=== PATIENT | male | born 1955 | race African-American/Black ===

== ENCOUNTER 2016-10-11 21:47 | Inpatient (IN) | payer OTHER, MEDICARE, MEDICAID ==
[~2016-10-11] VITALS: Ht 175.3 cm; Wt 92.1 kg
[~2016-10-11 21:47] MED LIST: ASPI-1035 PO; ATOR40TA70 PO; BACL-141 PO; BISO5TAB13 PO; CLOP75TA33 PO; FOLI-43 PO; HYDR-523 PO; LACT10SO6 PO; LEVO75TA7 PO; LORA1TAB PO; NEPVIT PO; NITR0.4T3 SL; POLY17PO3 PO; PROSTAT PO; SENN-22 PO; SEVE800T8 PO; VITAMIN B COMPLEX PO; VITAMIN C PO
[2016-10-11] MEDS ORDERED: PIPERACILLIN/TAZ 3.375G PREMIX 50 ML IV ONE (22:45)
[2016-10-11] MEDS ORDERED: VANCOMYCIN 1 G PREMIX 200 ML IV ONE (22:45)
[2016-10-11] MEDS ORDERED: SODIUM CHLORIDE 0.9% 1,000 ML IV ONE (22:45)
[2016-10-11 23:09] LABS: HEMATOCRIT. 35.7 % (42.0-52.0); HEMOGLOBIN. 11.9 g/dL (14.0-18.0); MEAN CORPUSCULAR HEMOGLOBIN 32.1 pg (28.0-32.0); MEAN CORPUSCULAR HGB CONC 33.3 g/dL (31.0-37.0); MEAN CORPUSCULAR VOLUME 96.4 fL (80.0-94.0); MEAN PLATELET VOLUME 7.6 fl (7.4-10.4); PLATELET 126 x1000/uL (130-400); RED CELL DISTRIBUTION WIDTH 15.9 % (11.6-14.6)
[2016-10-11 23:10] LABS: DIFFERENTIAL COMMENT 1
[2016-10-11 23:11] LABS: WHITE BLOOD COUNT 1.1 x1000/uL (4.5-11.0)
[2016-10-11 23:16] LABS: CHLORIDE 102 mEq/L (98-107); INDEX HEMOLYSI 1 (1-3); INDEX ICTERIC 1 (1-4); INDEX LIPEMIC 1 (1-3)
[2016-10-11 23:17] LABS: PLATELET ESTIMATE DECREASED
[2016-10-11 23:19] LABS: AMMONIA 24 uMol/L (<32); INDEX HEMOLYSI 1 (1-3)
[2016-10-11 23:20] LABS: ANISOCYTOSIS 1+; D-DIMER 3.26 mg/L FEU (<0.50); INR 1.2; PROTHROMBIN TIME 12.5 sec
[2016-10-11 23:26] LABS: ALANINE AMINOTRANSFERASE 31 IU/L (13-61); ALBUMIN 3.1 g/dL (3.4-5.0); ANION GAP 17; CALCIUM 8.5 mg/dL (8.5-10.1); CARBON DIOXIDE 30 mEq/L (21-32); ETHANOL BLOOD < 10 mg/dL; TROPONIN I 0.04 ng/mL (0.00-0.04); UREA NITROGEN BLOOD 29 mg/dL (7-21); eGFR 15 mL/min (>60)
[2016-10-11] MEDS ORDERED: ACETAMINOPHEN 650MG SUPP PR ONE (23:30)
[2016-10-11 23:31] LABS: LACTIC ACID 6.7 mmol/L (0.4-2.0)
[2016-10-11 23:38] LABS: NT PRO B-TYPE NATRIURETIC PEP 40459 pg/mL (5-125)
[2016-10-11 23:43] LABS: BG BASE EXCESS 6.1 mmol/L (-2.0-2.0); BG CARBOXYHEMOGLOBIN 0.6 % (0.5-1.5); BG DEOXYHEMOGLOBIN 24.8 % (0.0-5.0); BG FRACTION INSPIRED OXYGEN 100; BG HCO3 ACT 28.4 mmol/L (22.0-26.0); BG METHEMOGLOBIN 0.3 % (0.0-1.5); BG OXYHEMOGLOBIN 74.3 % (94.0-97.0); BG PH 7.553 (7.350-7.450); BG PO2 38.3 mmHg (75.0-100.0); BG SAMPLE SITE RIGHT RADIAL; BG TOTAL HEMOGLOBIN 11.5 g/dL (12.0-18.0); BG VENT MODE MASK - NRB
[2016-10-12] VITALS (93 sets, daily range): BP systolic 34–123; BP diastolic 17–81
[2016-10-12] MEDS ORDERED: ONDANSETRON HCL 4MG/2ML VIAL IV PRN (00:30)
[2016-10-12] MEDS ORDERED: MAGNESIUM/ALUMINUM HYDROXIDE/SIMETHICONE 30ML UDC PO PRN (00:30)
[2016-10-12] MEDS ORDERED: ACETAMINOPHEN 650MG/20.3ML UDC GT PRN (00:30)
[2016-10-12] MEDS ORDERED: VANCOMYCIN 1 G PREMIX 200 ML IV SCH ×2 (00:30→21:00)
[2016-10-12] MEDS ORDERED: DOCUSATE SODIUM 100MG CAPSULE PO PRN (00:30)
[2016-10-12] MEDS ORDERED: ACETAMINOPHEN 650MG SUPP PR PRN (00:30)
[2016-10-12] MEDS ORDERED: IPRATROPIUM/ALBUTEROL 0.5-3(2.5)MG/3ML NEB INH PRN (00:30)
[2016-10-12] MEDS ORDERED: GUAIFENESIN 200MG/10ML SUGAR FREE UDC PO PRN (00:30)
[2016-10-12] MEDS ORDERED: NA PHOS,M-B/NA PHOS,DI-BA ENEMA 118ML PR PRN (00:30)
[2016-10-12] MEDS ORDERED: CLONIDINE 0.1MG TABLET PO PRN (00:30)
[2016-10-12] MEDS ORDERED: HYDROCODONE/ACETAMINOPHEN 5/325MG TABLET PO PRN (00:30)
[2016-10-12] MEDS ORDERED: DIPHENHYDRAMINE 50MG/ML VIAL IV PRN (00:30)
[2016-10-12] MEDS ORDERED: SODIUM CHLORIDE 0.9% 1,000 ML IV ONE (01:45)
[2016-10-12] MEDS ORDERED: DEXTROSE 50% WATER 50ML SYRINGE IV ONE (02:00)
[2016-10-12] MEDS: SODIUM CHLORIDE 0.9% INJ 3ML FLUSH IVF SCH ×3 (06:24→22:00)
[2016-10-12 06:53] LABS: TROPONIN I 1.6 ng/mL (0.00-0.04)
[2016-10-12] MEDS ORDERED: DEXTROSE 50% WATER 50ML SYRINGE IV PRN (07:15)
[2016-10-12] MEDS ORDERED: PIPERACILLIN/TAZ 2.25G PREMIX 50 ML IV SCH (08:00)
[2016-10-12] MEDS: NOREPINEPHRINE 8 MG in DEXT 5% WATER 242 ML IV PRN ×2 (08:01→19:45)
[2016-10-12 08:45] LABS: BG BASE EXCESS 0.2 mmol/L (-2.0-2.0); BG DEOXYHEMOGLOBIN 2.5 % (0.0-5.0); BG FRACTION INSPIRED OXYGEN 50; BG HCO3 ACT 22.7 mmol/L (22.0-26.0); BG METHEMOGLOBIN 0.1 % (0.0-1.5); BG OXYGEN SATURATION 97.5 % (92.0-98.5); BG OXYHEMOGLOBIN 97.4 % (94.0-97.0); BG PCO2 29.4 mmHg (35.0-45.0); BG PH 7.505 (7.350-7.450); BG PO2 105.5 mmHg (75.0-100.0); BG SAMPLE SITE RIGHT RADIAL; BG TOTAL HEMOGLOBIN 10.4 g/dL (12.0-18.0); BG VENT MODE MASK - SIMPLE
[2016-10-12 08:58] LABS: HEMATOCRIT. 32.4 % (42.0-52.0); HEMOGLOBIN. 10.5 g/dL (14.0-18.0); MEAN CORPUSCULAR HEMOGLOBIN 32.1 pg (28.0-32.0); MEAN CORPUSCULAR HGB CONC 32.6 g/dL (31.0-37.0); MEAN CORPUSCULAR VOLUME 98.4 fL (80.0-94.0); MEAN PLATELET VOLUME 8.8 fl (7.4-10.4); PLATELET 96 x1000/uL (130-400); RED BLOOD CELL COUNT 3.29 mill/uL (4.7-6.1); RED CELL DISTRIBUTION WIDTH 15.9 % (11.6-14.6); WHITE BLOOD COUNT 16.7 x1000/uL (4.5-11.0)
[2016-10-12 08:59] LABS: DIFFERENTIAL COMMENT 1
[2016-10-12] MEDS ORDERED: MORPHINE SULFATE 2 MG/ML CPJ (NOT FOR IM USE) IV PRN (09:00)
[2016-10-12] MEDS ORDERED: ENOXAPARIN 100MG/ML SYR SUBCUT SCH (09:00)
[2016-10-12 09:09] LABS: ALANINE AMINOTRANSFERASE 44 IU/L (13-61); ANION GAP 20; CALCIUM 8.6 mg/dL (8.5-10.1); CARBON DIOXIDE 24 mEq/L (21-32); CHLORIDE 104 mEq/L (98-107); INDEX HEMOLYSI 3 (1-3); INDEX ICTERIC 1 (1-4); INDEX LIPEMIC 1 (1-3); UREA NITROGEN BLOOD 35 mg/dL (7-21); eGFR 12 mL/min (>60)
[2016-10-12 09:21] LABS: PHOSPHORUS 2.5 mg/dL (2.5-4.9); T4 FREE 1.23 ng/dL (0.76-1.46)
[2016-10-12 10:05] LABS: ANISOCYTOSIS 1+; PLATELET ESTIMATE DECREASED
[2016-10-12] MEDS ORDERED: METRONIDAZOLE 500 MG PREMIX 100 ML IV SCH (10:30)
[2016-10-12] MEDS ORDERED: CEFEPIME 1,000 MG in DEXTROSE 5% WATER 50 ML IV SCH (11:00)
[2016-10-12] MEDS: BLOOD SUGAR DIAGNOSTIC STRIP TEST SCH ×3 (11:21→21:30)
[2016-10-12] MEDS: INSULIN LISPRO 100 UNITS/ML SUBCUT SCH ×3 (11:22→21:00)
[2016-10-12] MEDS ORDERED: LEVOFLOXACIN 500MG PREMIX 100 ML IV SCH (12:00)
[2016-10-12] MEDS: IPRATROPIUM/ALBUTEROL 0.5-3(2.5)MG/3ML NEB INH SCH ×2 (13:47→21:03)
[2016-10-12 15:51] LABS: TROPONIN I 4.1 ng/mL (0.00-0.04)
[2016-10-12] MEDS ORDERED: *TOBRAMYCIN PER PHARMACY XX SCH (16:00)
[2016-10-12] MEDS ORDERED: TOBRAMYCIN 80 MG PREMIX 100 ML IV ONE (16:00)
[2016-10-12] MEDS ORDERED: TOBRAMYCIN SULFATE 140 MG in SODIUM CHLORIDE 0.9% 100 ML IV NR (17:00)
[2016-10-12 19:06] LABS: BG BASE EXCESS -1.5 mmol/L (-2.0-2.0); BG CARBOXYHEMOGLOBIN 0.6 % (0.5-1.5); BG DEOXYHEMOGLOBIN 4.7 % (0.0-5.0); BG FRACTION INSPIRED OXYGEN 36; BG HCO3 ACT 21.1 mmol/L (22.0-26.0); BG METHEMOGLOBIN 0.1 % (0.0-1.5); BG OXYGEN SATURATION 95.3 % (92.0-98.5); BG OXYHEMOGLOBIN 94.6 % (94.0-97.0); BG PCO2 29.5 mmHg (35.0-45.0); BG PH 7.473 (7.350-7.450); BG PO2 77.7 mmHg (75.0-100.0); BG SAMPLE SITE RIGHT RADIAL; BG TOTAL HEMOGLOBIN 12.5 g/dL (12.0-18.0); BG VENT MODE NASAL CPAP
[2016-10-12] MEDS: MORPHINE SULFATE 2 MG/ML CPJ (NOT FOR IM USE) IV PRN (19:53)
[2016-10-12 23:02] LABS: BG BASE EXCESS -3.7 mmol/L (-2.0-2.0); BG CARBOXYHEMOGLOBIN 0.4 % (0.5-1.5); BG DEOXYHEMOGLOBIN 3.5 % (0.0-5.0); BG FRACTION INSPIRED OXYGEN 36; BG HCO3 ACT 20.6 mmol/L (22.0-26.0); BG METHEMOGLOBIN 0.1 % (0.0-1.5); BG OXYGEN SATURATION 96.5 % (92.0-98.5); BG PCO2 34.9 mmHg (35.0-45.0); BG PH 7.389 (7.350-7.450); BG SAMPLE SITE RIGHT BRACHIAL; BG TOTAL HEMOGLOBIN 12.3 g/dL (12.0-18.0); BG VENT MODE NASAL CANNULA
[2016-10-12] MEDS ORDERED: LORAZEPAM 2MG/ML CPJ IV PRN (23:45)
[2016-10-13] VITALS (85 sets, daily range): BP systolic 56–163; BP diastolic 26–90
[2016-10-13] MEDS: MORPHINE SULFATE 2 MG/ML CPJ (NOT FOR IM USE) IV PRN (00:21)
[2016-10-13] MEDS: NOREPINEPHRINE 8 MG in DEXT 5% WATER 242 ML IV PRN ×5 (01:12→22:03)
[2016-10-13] MEDS: IPRATROPIUM/ALBUTEROL 0.5-3(2.5)MG/3ML NEB INH SCH ×4 (02:13→20:56)
[2016-10-13 02:26] LABS: CREATINE KINASE MB FRACTION 6.7 ng/mL (0.5-3.6)
[2016-10-13 02:27] LABS: TROPONIN I 3.7 ng/mL (0.00-0.04)
[2016-10-13] MEDS: PHENYLEPHRINE 40 MG in DEXT 5% WATER 246 ML IV PRN ×3 (03:44→17:12)
[2016-10-13 05:51] LABS: HEMOGLOBIN. 12.1 g/dL (14.0-18.0); MEAN CORPUSCULAR HEMOGLOBIN 31.7 pg (28.0-32.0); MEAN CORPUSCULAR HGB CONC 31.7 g/dL (31.0-37.0); MEAN CORPUSCULAR VOLUME 99.9 fL (80.0-94.0); MEAN PLATELET VOLUME 9.6 fl (7.4-10.4); PLATELET 146 x1000/uL (130-400); RED CELL DISTRIBUTION WIDTH 16.7 % (11.6-14.6); WHITE BLOOD COUNT 33.2 x1000/uL (4.5-11.0)
[2016-10-13] MEDS: SODIUM CHLORIDE 0.9% INJ 3ML FLUSH IVF SCH (06:00)
[2016-10-13 06:13] LABS: DIFFERENTIAL COMMENT 1
[2016-10-13] MEDS: INSULIN LISPRO 100 UNITS/ML SUBCUT SCH ×4 (06:35→20:35)
[2016-10-13] MEDS: BLOOD SUGAR DIAGNOSTIC STRIP TEST SCH ×4 (06:35→20:34)
[2016-10-13 06:55] LABS: ALANINE AMINOTRANSFERASE 46 IU/L (13-61); ANION GAP 23; CALCIUM 8.7 mg/dL (8.5-10.1); CARBON DIOXIDE 17 mEq/L (21-32); CHLORIDE 102 mEq/L (98-107); CREATINE KINASE MB FRACTION 7.7 ng/mL (0.5-3.6); HDL CHOLESTEROL 15 mg/dL (40-59); INDEX HEMOLYSI 4 (1-3); INDEX ICTERIC 2 (1-4); INDEX LIPEMIC 1 (1-3); LDL CHOLESTEROL 40 mg/dL (5-100); TOBRAMYCIN RANDOM 2.7 ucg/mL; TRIGLYCERIDE 181 mg/dL (0-150); UREA NITROGEN BLOOD 36 mg/dL (7-21); eGFR 12 mL/min (>60)
[2016-10-13 07:00] LABS: T3 FREE 0.99 pg/ml (2.18-3.98)
[2016-10-13 07:31] LABS: ANISOCYTOSIS 1+; PLATELET ESTIMATE NORMAL; TOXIC VACUOLATION 1+
[2016-10-13 07:32] LABS: PREALBUMIN 19.6 mg/dL (20.0-40.0)
[2016-10-13] MEDS: RISPERIDONE 0.5MG TABLET PO SCH ×3 (09:00→17:00)
[2016-10-13] MEDS ORDERED: AMPICILLIN SOD/SULBACTAM NA 1.5 G in SODIUM CHLORIDE 0.9% 50 ML IV SCH (09:00)
[2016-10-13] MEDS ORDERED: ENOXAPARIN 30MG/0.3ML SYR SUBCUT SCH (09:00)
[2016-10-13] MEDS: CLOPIDOGREL 75MG TABLET PO SCH (09:00)
[2016-10-13 09:44] LABS: D-DIMER 2.29 mg/L FEU (<0.50); INR 1.9; PROTHROMBIN TIME 19.4 sec
[2016-10-13] MEDS: ASPIRIN 81MG TABLET PO SCH (10:37)
[2016-10-13] MEDS ORDERED: TOBRAMYCIN 80 MG PREMIX 100 ML IV NR (12:00)
[2016-10-13] MEDS ORDERED: TOBRAMYCIN SULFATE 80 MG in SODIUM CHLORIDE 0.9% 100 ML IV NR (12:00)
[2016-10-13] MEDS ORDERED: ETOMIDATE 2MG/ML 10ML VIAL IV ONE (12:57)
[2016-10-13] MEDS ORDERED: VECURONIUM BROMIDE 10 MG/VIAL IV ONE (12:57)
[2016-10-13 13:44] LABS: BG BASE EXCESS -4.3 mmol/L (-2.0-2.0); BG CARBOXYHEMOGLOBIN 0.1 % (0.5-1.5); BG DEOXYHEMOGLOBIN 0.5 % (0.0-5.0); BG FRACTION INSPIRED OXYGEN 100; BG HCO3 ACT 19.7 mmol/L (22.0-26.0); BG METHEMOGLOBIN 0.4 % (0.0-1.5); BG OXYGEN SATURATION 99.5 % (92.0-98.5); BG PCO2 32.7 mmHg (35.0-45.0); BG PH 7.397 (7.350-7.450); BG PO2 340.5 mmHg (75.0-100.0); BG SAMPLE SITE RIGHT BRACHIAL; BG TIDAL VOLUME(mL) 550 mL; BG TOTAL HEMOGLOBIN 12.4 g/dL (12.0-18.0); BG VENT MODE VENT - A/C; BG VENT RATE 12 set
[2016-10-13] MEDS ORDERED: COLISTIMETHATE XX SCH (14:45)
[2016-10-13] MEDS ORDERED: VANCOMYCIN 500 MG PREMIX 100 ML IV NR (15:30)
[2016-10-13] MEDS ORDERED: VANCOMYCIN 1 G PREMIX 200 ML IV NR (16:00)
[2016-10-13] MEDS ORDERED: COLISTIMETHATE SODIUM 150 MG in SODIUM CHLORIDE 0.9% 100 ML IV NR (16:30)
[2016-10-13] MEDS ORDERED: COLISTIMETHATE SODIUM 300 MG in SODIUM CHLORIDE 0.9% 100 ML IV NR (16:30)
[2016-10-13] MEDS: MEROPENEM 1,000 MG in SODIUM CHLORIDE 0.9% 100 ML IV SCH (17:02)
[2016-10-13] MEDS ORDERED: SODIUM BICARBONATE 8.4% 1 MEQ/ML 50ML SYR IV NR (17:30)
[2016-10-13] MEDS: PROPOFOL 10MG/ML 100ML 100 ML IV PRN (20:10)
[2016-10-14] VITALS (88 sets, daily range): BP systolic 87–143; BP diastolic 20–97
[2016-10-14] MEDS: PHENYLEPHRINE 40 MG in DEXT 5% WATER 246 ML IV PRN ×3 (01:41→14:21)
[2016-10-14] MEDS: IPRATROPIUM/ALBUTEROL 0.5-3(2.5)MG/3ML NEB INH SCH ×3 (02:36→20:14)
[2016-10-14] MEDS: NOREPINEPHRINE 32 MG in DEXT 5% WATER 500 ML IV PRN ×2 (03:04→21:00)
[2016-10-14 05:41] LABS: HEMATOCRIT 31.8 % (42.0-52.0); HEMOGLOBIN 10.3 g/dL (14.0-18.0); MEAN CORPUSCULAR HEMOGLOBIN 31.5 pg (28.0-32.0); MEAN CORPUSCULAR HGB CONC 32.3 g/dL (31.0-37.0); MEAN CORPUSCULAR VOLUME 97.5 fL (80.0-94.0); PLATELET 127 x1000/uL (130-400); RED BLOOD CELL COUNT 3.27 mill/uL (4.7-6.1); RED CELL DISTRIBUTION WIDTH 16.8 % (11.6-14.6); WHITE BLOOD COUNT 30.5 x1000/uL (4.5-11.0)
[2016-10-14 06:07] LABS: CALCIUM 8.7 mg/dL (8.5-10.1)
[2016-10-14] MEDS: INSULIN LISPRO 100 UNITS/ML SUBCUT SCH ×4 (07:00→21:00)
[2016-10-14] MEDS: BLOOD SUGAR DIAGNOSTIC STRIP TEST SCH ×4 (07:20→21:45)
[2016-10-14 08:02] LABS: BG CARBOXYHEMOGLOBIN 0.3 % (0.5-1.5); BG DEOXYHEMOGLOBIN 1.8 % (0.0-5.0); BG FRACTION INSPIRED OXYGEN 50; BG HCO3 ACT 21.8 mmol/L (22.0-26.0); BG METHEMOGLOBIN 1.1 % (0.0-1.5); BG OXYGEN SATURATION 98.2 % (92.0-98.5); BG OXYHEMOGLOBIN 96.8 % (94.0-97.0); BG PCO2 34.1 mmHg (35.0-45.0); BG PH 7.424 (7.350-7.450); BG PO2 143.9 mmHg (75.0-100.0); BG SAMPLE SITE RIGHT RADIAL; BG TIDAL VOLUME(mL) 550 mL; BG VENT MODE VENT - A/C; BG VENT RATE 12 set
[2016-10-14] MEDS: RISPERIDONE 0.5MG TABLET PO SCH (08:36)
[2016-10-14] MEDS: ASPIRIN 81MG TABLET PO SCH (08:36)
[2016-10-14] MEDS: CLOPIDOGREL 75MG TABLET PO SCH ×2 (08:36→09:00)
[2016-10-14] MEDS: PROPOFOL 10MG/ML 100ML 100 ML IV PRN (08:37)
[2016-10-14] MEDS: SODIUM CHLORIDE 0.9% INJ 3ML FLUSH IVF SCH ×5 (08:45→22:44)
[2016-10-14] MEDS: QUETIAPINE FUMARATE 25MG TABLET PO SCH ×2 (09:10→21:45)
[2016-10-14] MEDS: PANTOPRAZOLE SODIUM 40 MG/VIAL IV SCH (09:10)
[2016-10-14] MEDS ORDERED: HEPARIN SODIUM 1,000 UNIT/1ML VIAL IV NR (10:15)
[2016-10-14] MEDS ORDERED: LEVOFLOXACIN 250MG PREMIX 50 ML IV SCH (11:00)
[2016-10-14] MEDS ORDERED: MIDAZOLAM HCL 100 MG in DEXT 5% WATER 80 ML IV PRN (11:30)
[2016-10-14] MEDS ORDERED: VANCOMYCIN 500 MG PREMIX 100 ML IV NR (15:00)
[2016-10-14] MEDS: MEROPENEM 1,000 MG in SODIUM CHLORIDE 0.9% 100 ML IV SCH (16:18)
[2016-10-14] MEDS: FENTANYL CITRATE/PF 500 MCG in SODIUM CHLORIDE 0.9% 40 ML IV PRN (22:18)
[2016-10-15] VITALS (86 sets, daily range): BP systolic 60–164; BP diastolic 28–89
[2016-10-15] MEDS: IPRATROPIUM/ALBUTEROL 0.5-3(2.5)MG/3ML NEB INH SCH ×4 (02:07→20:19)
[2016-10-15] MEDS: PHENYLEPHRINE 40 MG in DEXT 5% WATER 246 ML IV PRN (02:41)
[2016-10-15] MEDS: SODIUM CHLORIDE 0.9% INJ 3ML FLUSH IVF SCH ×3 (06:05→22:28)
[2016-10-15] MEDS: BLOOD SUGAR DIAGNOSTIC STRIP TEST SCH ×4 (06:05→20:52)
[2016-10-15] MEDS: INSULIN LISPRO 100 UNITS/ML SUBCUT SCH ×4 (06:09→20:52)
[2016-10-15 07:32] LABS: BG BASE EXCESS -0.3 mmol/L (-2.0-2.0); BG CARBOXYHEMOGLOBIN 0.3 % (0.5-1.5); BG DEOXYHEMOGLOBIN 1.9 % (0.0-5.0); BG FRACTION INSPIRED OXYGEN 40; BG HCO3 ACT 21.9 mmol/L (22.0-26.0); BG METHEMOGLOBIN 0.1 % (0.0-1.5); BG OXYGEN SATURATION 98.1 % (92.0-98.5); BG OXYHEMOGLOBIN 97.7 % (94.0-97.0); BG PCO2 28.2 mmHg (35.0-45.0); BG PH 7.509 (7.350-7.450); BG PO2 116.3 mmHg (75.0-100.0); BG SAMPLE SITE RIGHT RADIAL; BG TIDAL VOLUME(mL) 550 mL; BG TOTAL HEMOGLOBIN 10.9 g/dL (12.0-18.0); BG VENT MODE VENT - A/C; BG VENT RATE 12 set
[2016-10-15] MEDS: CLOPIDOGREL 75MG TABLET PO SCH (08:38)
[2016-10-15] MEDS: ASPIRIN 81MG TABLET PO SCH (08:38)
[2016-10-15] MEDS: PANTOPRAZOLE SODIUM 40 MG/VIAL IV SCH (08:38)
[2016-10-15] MEDS: QUETIAPINE FUMARATE 25MG TABLET PO SCH ×2 (08:39→20:20)
[2016-10-15] MEDS: FENTANYL CITRATE/PF 500 MCG in SODIUM CHLORIDE 0.9% 40 ML IV PRN (09:54)
[2016-10-15 10:27] LABS: ALANINE AMINOTRANSFERASE 52 IU/L (13-61); ALBUMIN 2.3 g/dL (3.4-5.0); ANION GAP 18; CALCIUM 9.4 mg/dL (8.5-10.1); CARBON DIOXIDE 24 mEq/L (21-32); CHLORIDE 95 mEq/L (98-107); INDEX HEMOLYSI 1 (1-3); INDEX ICTERIC 1 (1-4); INDEX LIPEMIC 1 (1-3); UREA NITROGEN BLOOD 38 mg/dL (7-21); eGFR 12 mL/min (>60)
[2016-10-15] MEDS: MEROPENEM 1,000 MG in SODIUM CHLORIDE 0.9% 100 ML IV SCH (15:29)
[2016-10-15 18:00] LABS: BASOPHILS % 0.4 % (0.0-2.0); EOSINOPHILS % 5.4 % (0.0-5.0); HEMATOCRIT. 31.3 % (42.0-52.0); HEMOGLOBIN. 10.3 g/dL (14.0-18.0); LYMPHOCYTES % 11.2 % (20.0-50.0); MEAN CORPUSCULAR HEMOGLOBIN 31.6 pg (28.0-32.0); MEAN CORPUSCULAR VOLUME 95.8 fL (80.0-94.0); MEAN PLATELET VOLUME 8.6 fl (7.4-10.4); MONOCYTES % 4.7 % (2.0-8.0); NEUTROPHILS % 78.3 % (40.0-76.0); PLATELET 119 x1000/uL (130-400); RED BLOOD CELL COUNT 3.26 mill/uL (4.7-6.1); RED CELL DISTRIBUTION WIDTH 16.2 % (11.6-14.6); WHITE BLOOD COUNT 15.9 x1000/uL (4.5-11.0)
[2016-10-15 18:05] LABS: CHLORIDE 95 mEq/L (98-107); INDEX HEMOLYSI 1 (1-3); INDEX ICTERIC 1 (1-4); INDEX LIPEMIC 1 (1-3)
[2016-10-15 18:14] LABS: ALANINE AMINOTRANSFERASE 51 IU/L (13-61); ALBUMIN 2.3 g/dL (3.4-5.0); ANION GAP 18; CALCIUM 9.2 mg/dL (8.5-10.1); CARBON DIOXIDE 22 mEq/L (21-32); UREA NITROGEN BLOOD 43 mg/dL (7-21); eGFR 11 mL/min (>60)
[2016-10-15] MEDS: NOREPINEPHRINE 32 MG in DEXT 5% WATER 500 ML IV PRN (18:46)
[2016-10-15] MEDS ORDERED: FLUCONAZOLE 200 MG/100ML BAG 100 ML IV SCH (22:00)
[2016-10-16] VITALS (90 sets, daily range): BP systolic 80–152; BP diastolic 46–100
[2016-10-16] MEDS: IPRATROPIUM/ALBUTEROL 0.5-3(2.5)MG/3ML NEB INH SCH ×4 (02:13→20:51)
[2016-10-16] MEDS: PHENYLEPHRINE 40 MG in DEXT 5% WATER 246 ML IV PRN ×2 (02:36→14:23)
[2016-10-16 04:26] LABS: HEMATOCRIT. 32.2 % (42.0-52.0); HEMOGLOBIN. 10.5 g/dL (14.0-18.0); MEAN CORPUSCULAR HEMOGLOBIN 31.5 pg (28.0-32.0); MEAN CORPUSCULAR HGB CONC 32.5 g/dL (31.0-37.0); MEAN CORPUSCULAR VOLUME 96.7 fL (80.0-94.0); MEAN PLATELET VOLUME 8.6 fl (7.4-10.4); PLATELET 111 x1000/uL (130-400); RED BLOOD CELL COUNT 3.33 mill/uL (4.7-6.1); RED CELL DISTRIBUTION WIDTH 15.6 % (11.6-14.6); WHITE BLOOD COUNT 15.4 x1000/uL (4.5-11.0)
[2016-10-16 04:48] LABS: ALANINE AMINOTRANSFERASE 55 IU/L (13-61); ALBUMIN 2.4 g/dL (3.4-5.0); ANION GAP 16; CALCIUM 9.4 mg/dL (8.5-10.1); CARBON DIOXIDE 24 mEq/L (21-32); CHLORIDE 94 mEq/L (98-107); INDEX HEMOLYSI 1 (1-3); INDEX ICTERIC 1 (1-4); INDEX LIPEMIC 1 (1-3); UREA NITROGEN BLOOD 49 mg/dL (7-21); eGFR 10 mL/min (>60)
[2016-10-16 05:08] LABS: DIFFERENTIAL COMMENT 1
[2016-10-16] MEDS: BLOOD SUGAR DIAGNOSTIC STRIP TEST SCH ×4 (05:30→21:51)
[2016-10-16] MEDS: INSULIN LISPRO 100 UNITS/ML SUBCUT SCH ×4 (05:32→21:00)
[2016-10-16] MEDS: SODIUM CHLORIDE 0.9% INJ 3ML FLUSH IVF SCH ×3 (05:33→22:12)
[2016-10-16 08:13] LABS: ATYPICAL LYMPHOCYTES 1
[2016-10-16 08:14] LABS: PLATELET ESTIMATE DECREASED
[2016-10-16] MEDS: PANTOPRAZOLE SODIUM 40 MG/VIAL IV SCH (08:36)
[2016-10-16] MEDS: ASPIRIN 81MG TABLET PO SCH (08:36)
[2016-10-16] MEDS: CLOPIDOGREL 75MG TABLET PO SCH (08:36)
[2016-10-16] MEDS: QUETIAPINE FUMARATE 25MG TABLET PO SCH ×2 (08:37→21:56)
[2016-10-16] MEDS ORDERED: FLUCONAZOLE 200MG/100ML PREMIX IV SCH (09:00)
[2016-10-16 09:37] LABS: BG BASE EXCESS -1.6 mmol/L (-2.0-2.0); BG CARBOXYHEMOGLOBIN 0.3 % (0.5-1.5); BG DEOXYHEMOGLOBIN 3.3 % (0.0-5.0); BG FRACTION INSPIRED OXYGEN 40; BG HCO3 ACT 21.5 mmol/L (22.0-26.0); BG METHEMOGLOBIN 0.4 % (0.0-1.5); BG OXYGEN SATURATION 96.7 % (92.0-98.5); BG PCO2 31.4 mmHg (35.0-45.0); BG PH 7.454 (7.350-7.450); BG PO2 95.1 mmHg (75.0-100.0); BG SAMPLE SITE RIGHT BRACHIAL; BG TIDAL VOLUME(mL) 550 mL; BG TOTAL HEMOGLOBIN 11.5 g/dL (12.0-18.0); BG VENT MODE VENT - A/C; BG VENT RATE 12 set
[2016-10-16] MEDS ORDERED: SODIUM CHLORIDE 10% FOR INH 15ML VIAL NEB INH SCH (10:45)
[2016-10-16] MEDS: NOREPINEPHRINE 32 MG in DEXT 5% WATER 500 ML IV PRN (12:04)
[2016-10-16] MEDS ORDERED: HEPARIN SODIUM 1,000 UNIT/1ML VIAL IV NR (12:15)
[2016-10-16] MEDS: METOCLOPRAMIDE HCL 10MG/2ML VIAL IV SCH ×2 (14:23→22:12)
[2016-10-16] MEDS: MEROPENEM 1,000 MG in SODIUM CHLORIDE 0.9% 100 ML IV SCH (15:55)
[2016-10-16] MEDS ORDERED: VANCOMYCIN 1 G PREMIX 200 ML IV NR (18:00)
[2016-10-17] VITALS (81 sets, daily range): BP systolic 66–128; BP diastolic 47–81
[2016-10-17] MEDS: IPRATROPIUM/ALBUTEROL 0.5-3(2.5)MG/3ML NEB INH SCH ×4 (02:40→21:50)
[2016-10-17 05:24] LABS: BASOPHILS % 0.5 % (0.0-2.0); EOSINOPHILS % 9.3 % (0.0-5.0); HEMATOCRIT. 30.7 % (42.0-52.0); HEMOGLOBIN. 10.3 g/dL (14.0-18.0); LYMPHOCYTES % 27.8 % (20.0-50.0); MEAN CORPUSCULAR HGB CONC 33.7 g/dL (31.0-37.0); MEAN CORPUSCULAR VOLUME 95.1 fL (80.0-94.0); MEAN PLATELET VOLUME 9.2 fl (7.4-10.4); MONOCYTES % 8.8 % (2.0-8.0); NEUTROPHILS % 53.6 % (40.0-76.0); PLATELET 92 x1000/uL (130-400); RED BLOOD CELL COUNT 3.23 mill/uL (4.7-6.1); RED CELL DISTRIBUTION WIDTH 15.4 % (11.6-14.6); WHITE BLOOD COUNT 6.7 x1000/uL (4.5-11.0)
[2016-10-17 05:41] LABS: PHOSPHORUS 4.1 mg/dL (2.5-4.9); PREALBUMIN 14.7 mg/dL (20.0-40.0); eGFR 12 mL/min (>60)
[2016-10-17 05:49] LABS: ALANINE AMINOTRANSFERASE 54 IU/L (13-61); ALBUMIN 2.2 g/dL (3.4-5.0); ANION GAP 18; CALCIUM 8.7 mg/dL (8.5-10.1); CARBON DIOXIDE 22 mEq/L (21-32); CHLORIDE 96 mEq/L (98-107); INDEX HEMOLYSI 1 (1-3); INDEX ICTERIC 1 (1-4); INDEX LIPEMIC 1 (1-3); UREA NITROGEN BLOOD 41 mg/dL (7-21)
[2016-10-17] MEDS: SODIUM CHLORIDE 0.9% INJ 3ML FLUSH IVF SCH ×3 (06:09→22:24)
[2016-10-17] MEDS: METOCLOPRAMIDE HCL 10MG/2ML VIAL IV SCH ×3 (06:10→22:24)
[2016-10-17] MEDS: BLOOD SUGAR DIAGNOSTIC STRIP TEST SCH ×4 (06:10→21:00)
[2016-10-17] MEDS: INSULIN LISPRO 100 UNITS/ML SUBCUT SCH ×4 (06:26→21:00)
[2016-10-17] MEDS: ASPIRIN 81MG TABLET PO SCH (09:01)
[2016-10-17] MEDS: PANTOPRAZOLE SODIUM 40 MG/VIAL IV SCH (09:01)
[2016-10-17] MEDS: QUETIAPINE FUMARATE 25MG TABLET PO SCH ×2 (09:01→20:43)
[2016-10-17] MEDS: CLOPIDOGREL 75MG TABLET PO SCH (09:01)
[2016-10-17] MEDS: MEROPENEM 1,000 MG in SODIUM CHLORIDE 0.9% 100 ML IV SCH (17:16)
[2016-10-17] MEDS: MORPHINE SULFATE 2 MG/ML CPJ (NOT FOR IM USE) IV PRN (19:40)
[2016-10-17] MEDS: NOREPINEPHRINE 32 MG in DEXT 5% WATER 500 ML IV PRN (19:55)
[2016-10-18] VITALS (72 sets, daily range): BP systolic 88–141; BP diastolic 39–107
[2016-10-18] MEDS: MORPHINE SULFATE 2 MG/ML CPJ (NOT FOR IM USE) IV PRN ×5 (01:47→23:52)
[2016-10-18] MEDS: IPRATROPIUM/ALBUTEROL 0.5-3(2.5)MG/3ML NEB INH SCH ×5 (04:17→20:30)
[2016-10-18 05:23] LABS: BASOPHILS % 0.9 % (0.0-2.0); EOSINOPHILS % 10.3 % (0.0-5.0); HEMATOCRIT. 29.9 % (42.0-52.0); LYMPHOCYTES % 33.2 % (20.0-50.0); MEAN CORPUSCULAR HEMOGLOBIN 31.8 pg (28.0-32.0); MEAN CORPUSCULAR HGB CONC 33.4 g/dL (31.0-37.0); MEAN CORPUSCULAR VOLUME 95.2 fL (80.0-94.0); MEAN PLATELET VOLUME 9.1 fl (7.4-10.4); MONOCYTES % 11.1 % (2.0-8.0); NEUTROPHILS % 44.5 % (40.0-76.0); PLATELET 107 x1000/uL (130-400); RED BLOOD CELL COUNT 3.14 mill/uL (4.7-6.1); RED CELL DISTRIBUTION WIDTH 15.5 % (11.6-14.6); WHITE BLOOD COUNT 5.3 x1000/uL (4.5-11.0)
[2016-10-18 06:01] LABS: ALANINE AMINOTRANSFERASE 43 IU/L (13-61); ALBUMIN 2.4 g/dL (3.4-5.0); ANION GAP 19; CALCIUM 9.1 mg/dL (8.5-10.1); CARBON DIOXIDE 21 mEq/L (21-32); CHLORIDE 96 mEq/L (98-107); INDEX HEMOLYSI 2 (1-3); INDEX ICTERIC 1 (1-4); INDEX LIPEMIC 1 (1-3); UREA NITROGEN BLOOD 55 mg/dL (7-21); eGFR 9 mL/min (>60)
[2016-10-18] MEDS: METOCLOPRAMIDE HCL 10MG/2ML VIAL IV SCH ×3 (06:18→21:29)
[2016-10-18] MEDS: INSULIN LISPRO 100 UNITS/ML SUBCUT SCH ×4 (06:19→21:00)
[2016-10-18] MEDS: BLOOD SUGAR DIAGNOSTIC STRIP TEST SCH ×4 (06:19→21:28)
[2016-10-18] MEDS: SODIUM CHLORIDE 0.9% INJ 3ML FLUSH IVF SCH ×3 (06:19→21:29)
[2016-10-18] MEDS: QUETIAPINE FUMARATE 25MG TABLET PO SCH ×2 (08:02→21:28)
[2016-10-18] MEDS: ASPIRIN 81MG TABLET PO SCH (08:02)
[2016-10-18] MEDS: CLOPIDOGREL 75MG TABLET PO SCH (08:02)
[2016-10-18] MEDS: PANTOPRAZOLE SODIUM 40 MG/VIAL IV SCH (08:02)
[2016-10-18] MEDS ORDERED: HEPARIN SODIUM 1,000 UNIT/1ML VIAL IV NR (09:45)
[2016-10-18] MEDS: MEROPENEM 1,000 MG in SODIUM CHLORIDE 0.9% 100 ML IV SCH (16:26)
[2016-10-18] MEDS ORDERED: VANCOMYCIN 750 MG PREMIX 150 ML IV SCH (17:00)
[2016-10-19] VITALS (93 sets, daily range): BP systolic 87–133; BP diastolic 23–86
[2016-10-19] MEDS: IPRATROPIUM/ALBUTEROL 0.5-3(2.5)MG/3ML NEB INH SCH ×4 (02:15→20:33)
[2016-10-19] MEDS: MORPHINE SULFATE 2 MG/ML CPJ (NOT FOR IM USE) IV PRN ×3 (04:55→20:59)
[2016-10-19 05:18] LABS: BASOPHILS % 0.7 % (0.0-2.0); EOSINOPHILS % 10.3 % (0.0-5.0); HEMATOCRIT. 29.6 % (42.0-52.0); HEMOGLOBIN. 10.1 g/dL (14.0-18.0); LYMPHOCYTES % 27.8 % (20.0-50.0); MEAN CORPUSCULAR HEMOGLOBIN 32.2 pg (28.0-32.0); MEAN CORPUSCULAR HGB CONC 34.1 g/dL (31.0-37.0); MEAN CORPUSCULAR VOLUME 94.4 fL (80.0-94.0); MEAN PLATELET VOLUME 8.3 fl (7.4-10.4); MONOCYTES % 12.9 % (2.0-8.0); NEUTROPHILS % 48.3 % (40.0-76.0); PLATELET 114 x1000/uL (130-400); RED BLOOD CELL COUNT 3.14 mill/uL (4.7-6.1); RED CELL DISTRIBUTION WIDTH 15.1 % (11.6-14.6); WHITE BLOOD COUNT 5.5 x1000/uL (4.5-11.0)
[2016-10-19 05:35] LABS: PARTIAL THROMBOPLASTIN TIME 34.4 sec (24.0-34.0)
[2016-10-19 05:44] LABS: CALCIUM 8.6 mg/dL (8.5-10.1)
[2016-10-19] MEDS: METOCLOPRAMIDE HCL 10MG/2ML VIAL IV SCH ×3 (05:44→20:58)
[2016-10-19] MEDS: NOREPINEPHRINE 32 MG in DEXT 5% WATER 500 ML IV PRN (05:45)
[2016-10-19] MEDS: INSULIN LISPRO 100 UNITS/ML SUBCUT SCH ×4 (06:57→20:44)
[2016-10-19] MEDS: SODIUM CHLORIDE 0.9% INJ 3ML FLUSH IVF SCH ×3 (06:57→22:00)
[2016-10-19] MEDS: BLOOD SUGAR DIAGNOSTIC STRIP TEST SCH ×4 (06:57→20:44)
[2016-10-19] MEDS: ASPIRIN 81MG TABLET PO SCH (09:11)
[2016-10-19] MEDS: QUETIAPINE FUMARATE 25MG TABLET PO SCH ×2 (09:11→21:07)
[2016-10-19] MEDS: CLOPIDOGREL 75MG TABLET PO SCH (09:11)
[2016-10-19] MEDS: PANTOPRAZOLE SODIUM 40 MG/VIAL IV SCH (09:11)
[2016-10-19] MEDS ORDERED: ALBUMIN HUMAN 12.5G/250ML (5%) IV SCH (13:00)
[2016-10-19] MEDS: MEROPENEM 1,000 MG in SODIUM CHLORIDE 0.9% 100 ML IV SCH (16:30)
[2016-10-19 18:59] LABS: BG BASE EXCESS -3.2 mmol/L (-2.0-2.0); BG CARBOXYHEMOGLOBIN 0.3 % (0.5-1.5); BG DEOXYHEMOGLOBIN 3.3 % (0.0-5.0); BG FRACTION INSPIRED OXYGEN 40; BG HCO3 ACT 21.7 mmol/L (22.0-26.0); BG METHEMOGLOBIN 0.3 % (0.0-1.5); BG OXYGEN SATURATION 96.7 % (92.0-98.5); BG OXYHEMOGLOBIN 96.1 % (94.0-97.0); BG PCO2 38.5 mmHg (35.0-45.0); BG PH 7.369 (7.350-7.450); BG PO2 97.5 mmHg (75.0-100.0); BG PRESSURE SUPPORT 6; BG SAMPLE SITE RIGHT RADIAL; BG TIDAL VOLUME(mL) 550 mL; BG TOTAL HEMOGLOBIN 11.9 g/dL (12.0-18.0); BG VENT MODE VENT - SIMV; BG VENT RATE 4 set
[2016-10-20] VITALS (17 sets, daily range): BP systolic 85–113; BP diastolic 47–61
[2016-10-20] MEDS: MORPHINE SULFATE 2 MG/ML CPJ (NOT FOR IM USE) IV PRN (00:51)
[2016-10-20] MEDS: IPRATROPIUM/ALBUTEROL 0.5-3(2.5)MG/3ML NEB INH SCH (02:30)
[2016-10-20 10:12] LABS: IMMUNOGLOBULIN A 513 mg/dL (90-386); IMMUNOGLOBULIN G 1498 mg/dL (700-1600); IMMUNOGLOBULIN M 136 mg/dL (20-172)
== END 2016-10-20 03:40 | disposition short-term general hospital (02) | DRG 870 ==
LOC: ER 21:48 → MICUSO 10-12 00:24
PROVIDERS: ADMIT Family Medicine; ATTEND Family Medicine
PROC: 5A1955Z Respiratory Ventilation, Greater than 96 Consecutive Hours (ICD-10-PCS; principal; 2016-10-12)
PROC: 0BH17EZ Insertion of Endotracheal Airway into Trachea, Via Natural or Artificial Opening (ICD-10-PCS; 2016-10-12)
PROC: B54MZZA Ultrasonography of Right Upper Extremity Veins, Guidance (ICD-10-PCS; 2016-10-12)
PROC: 05H933Z Insertion of Infusion Device into Right Brachial Vein, Percutaneous Approach (ICD-10-PCS; 2016-10-12)
PROC: 5A1D60Z (ICD-10-PCS; 2016-10-12)
PROC: 06HN33Z Insertion of Infusion Device into Left Femoral Vein, Percutaneous Approach (ICD-10-PCS; 2016-10-13)
DX: A41.9 Sepsis, unspecified organism (principal); E43 Unspecified severe protein-calorie malnutrition; I50.23 Acute on chronic systolic (congestive) heart failure; J96.01 Acute respiratory failure with hypoxia; N18.6 End stage renal disease; R65.21 Severe sepsis with septic shock; G93.41 Metabolic encephalopathy; J69.0 Pneumonitis due to inhalation of food and vomit; D65 Disseminated intravascular coagulation [defibrination syndrome]; I63.9 Cerebral infarction, unspecified; G81.91 Hemiplegia, unspecified affecting right dominant side; G82.20 Paraplegia, unspecified; I13.2 Hypertensive heart and chronic kidney disease with heart failure and with stage 5 chronic kidney disease, or end stage renal disease; N17.9 Acute kidney failure, unspecified; I38 Endocarditis, valve unspecified; D61.818 Other pancytopenia; R17 Unspecified jaundice; D50.9 Iron deficiency anemia, unspecified; E11.22 Type 2 diabetes mellitus with diabetic chronic kidney disease; D63.8 Anemia in other chronic diseases classified elsewhere; F29 Unspecified psychosis not due to a substance or known physiological condition; E78.5 Hyperlipidemia, unspecified; E11.51 Type 2 diabetes mellitus with diabetic peripheral angiopathy without gangrene; L89.159 Pressure ulcer of sacral region, unspecified stage; I25.10 Atherosclerotic heart disease of native coronary artery without angina pectoris; E03.9 Hypothyroidism, unspecified; I25.5 Ischemic cardiomyopathy; I27.2 Other secondary pulmonary hypertension; Z86.14 Personal history of Methicillin resistant Staphylococcus aureus infection; Z89.429 Acquired absence of other toe(s), unspecified side; Z79.2 Long term (current) use of antibiotics; Z99.2 Dependence on renal dialysis; Z95.1 Presence of aortocoronary bypass graft; Z68.30 Body mass index [BMI] 30.0-30.9, adult; Z95.5 Presence of coronary angioplasty implant and graft; Z79.899 Other long term (current) drug therapy; Z74.01 Bed confinement status; Z79.82 Long term (current) use of aspirin; Z82.49 Family history of ischemic heart disease and other diseases of the circulatory system
CPT/HCPCS: 36415; 36569; 36600; 70450; 71010; 74000; 76700; 76937; 78580; 80048; 80053; 80061; 80200; 80202; 82140; 82375; 82542; 82550; 82553; 82784; 82805; 82962; 83036; 83605; 83735; 83880; 84100; 84134; 84439; 84443; 84478; 84481; 84484; 85025; 85027; 85379; 85384; 85610; 85651; 85730; 86022; 86140; 86334; 86850; 86900; 87040; 87070; 87077; 87107; 87186; 93005; 93306; 93970; 94002; 94003; 94640; 94660; 96365; 99291; A6261; C1725; C1752; C1769; C9113; G0482; J0295; J0692; J0770; J1200; J1450; J1644; J1650; J1956; J2060; J2185; J2270; J2370; J2543; J2704; J2765; J3010; J3260; J3370; J3490; J7030; J7040; J7050; J7060; J7131; J7620; P9041

== ENCOUNTER 2017-03-20 20:41 | Inpatient (IN) | payer MEDICARE, MEDICAID ==
[~2017-03-20] VITALS: Ht 170.2 cm; Wt 91.2 kg
[~2017-03-20 20:41] MED LIST changes: -ASPI-1035 PO; +ASPI-1159 PO; -NITR0.4T3 SL; +NITR0.4T49 SL
[2017-03-20] MEDS ORDERED: SODIUM CHLORIDE 0.9% 1,000 ML IV ONE (21:15)
[2017-03-20] MEDS ORDERED: ENALAPRIL 2.5MG/2ML VIAL 2ML IV ONE (21:45)
[2017-03-20 22:11] LABS: BG CARBOXYHEMOGLOBIN 1.5 % (0.5-1.5); BG DEOXYHEMOGLOBIN 7.9 % (0.0-5.0); BG FRACTION INSPIRED OXYGEN 21; BG OXYHEMOGLOBIN 90.6 % (94.0-97.0); BG PCO2 32.5 mmHg (35.0-45.0); BG PH 7.468 (7.350-7.450); BG PO2 64.4 mmHg (75.0-100.0); BG SAMPLE SITE RIGHT RADIAL; BG TOTAL HEMOGLOBIN 12.9 g/dL (12.0-18.0); BG VENT MODE ROOM AIR
[2017-03-20 22:11] LABS: BASOPHILS % 0.3 % (0.0-2.0); EOSINOPHILS % 0.5 % (0.0-5.0); HEMATOCRIT. 36.8 % (42.0-52.0); HEMOGLOBIN. 12.1 g/dL (14.0-18.0); INR 1.3; LYMPHOCYTES % 12.6 % (20.0-50.0); MEAN CORPUSCULAR HEMOGLOBIN 29.2 pg (28.0-32.0); MEAN PLATELET VOLUME 7.3 fl (7.4-10.4); MONOCYTES % 9.3 % (2.0-8.0); NEUTROPHILS % 77.3 % (40.0-76.0); PLATELET 223 x1000/uL (130-400); PROTHROMBIN TIME 13.3 sec (9.4-11.6); RED BLOOD CELL COUNT 4.14 mill/uL (4.7-6.1); RED CELL DISTRIBUTION WIDTH 18.3 % (11.6-14.6)
[2017-03-20 22:16] LABS: CARBON DIOXIDE 27 mEq/L (21-32); CHLORIDE 92 mEq/L (98-107)
[2017-03-20 22:17] LABS: ETHANOL BLOOD < 10 mg/dL
[2017-03-20 22:20] LABS: TROPONIN I < 0.02 ng/mL (0.00-0.04)
[2017-03-20] MEDS ORDERED: LEVOFLOXACIN 500MG PREMIX 100 ML IV ONE (23:30)
[2017-03-21] VITALS (10 sets, daily range): BP systolic 86–114; BP diastolic 51–69
[2017-03-21] MEDS ORDERED: IPRATROPIUM/ALBUTEROL 0.5-3(2.5)MG/3ML NEB INH PRN (00:15)
[2017-03-21] MEDS ORDERED: DOCUSATE SODIUM 100MG CAPSULE PO PRN (00:15)
[2017-03-21] MEDS ORDERED: PIPERACILLIN/TAZ 3.375G PREMIX 50 ML IV SCH (00:15)
[2017-03-21] MEDS ORDERED: ACETAMINOPHEN 325MG TABLET PO PRN (00:15)
[2017-03-21] MEDS ORDERED: MAGNESIUM/ALUMINUM HYDROXIDE/SIMETHICONE 30ML UDC PO PRN (00:15)
[2017-03-21] MEDS ORDERED: ONDANSETRON HCL 4MG/2ML VIAL IV PRN (00:15)
[2017-03-21] MEDS ORDERED: CLONIDINE 0.1MG TABLET PO PRN (00:15)
[2017-03-21] MEDS ORDERED: MIDODRINE HCL 5MG TABLET PO ONE (00:15)
[2017-03-21] MEDS ORDERED: SODIUM CHLORIDE 0.9% 1,000 ML IV ONE (00:23)
[2017-03-21] MEDS ORDERED: SODIUM POLYSTYRENE SULFONATE 15 G/60 ML BOT PO SCH (01:47)
[2017-03-21] MEDS ORDERED: VANCOMYCIN 1 G PREMIX 200 ML IV SCH (03:00)
[2017-03-21] MEDS ORDERED: POLYETHYLENE GLYCOL 3350 (17GM) 1 DOSE PACK PO PRN (03:30)
[2017-03-21] MEDS ORDERED: LORAZEPAM 1MG TABLET PO PRN (03:30)
[2017-03-21] MEDS ORDERED: NITROGLYCERIN 0.4MG TABLET SL SL PRN (03:30)
[2017-03-21] MEDS ORDERED: HYDROCODONE/ACETAMINOPHEN 5/325MG TABLET PO PRN (03:30)
[2017-03-21] MEDS ORDERED: NON FORMULARY PATIENT HOME MED EA XX SCH ×2 (03:45)
[2017-03-21] MEDS ORDERED: LACTULOSE 20G/30ML UDC PO PRN (03:45)
[2017-03-21] MEDS: PIPERACILLIN/TAZ 2.25G PREMIX 50 ML IV SCH ×3 (04:08→18:09)
[2017-03-21 06:23] LABS: BASOPHILS % 0.3 % (0.0-2.0); EOSINOPHILS % 0.5 % (0.0-5.0); HEMATOCRIT. 34.2 % (42.0-52.0); HEMOGLOBIN. 11.4 g/dL (14.0-18.0); LYMPHOCYTES % 11.6 % (20.0-50.0); MEAN CORPUSCULAR HEMOGLOBIN 29.5 pg (28.0-32.0); MEAN CORPUSCULAR VOLUME 88.7 fL (80.0-94.0); MEAN PLATELET VOLUME 7.2 fl (7.4-10.4); MONOCYTES % 10.5 % (2.0-8.0); NEUTROPHILS % 77.1 % (40.0-76.0); PLATELET 195 x1000/uL (130-400); RED BLOOD CELL COUNT 3.85 mill/uL (4.7-6.1); RED CELL DISTRIBUTION WIDTH 18.7 % (11.6-14.6)
[2017-03-21 07:11] LABS: CREATINE KINASE 38 IU/L (39-308)
[2017-03-21 07:12] LABS: TROPONIN I < 0.02 ng/mL (0.00-0.04)
[2017-03-21 07:22] LABS: CREATINE KINASE MB FRACTION 1.4 ng/mL (0.5-3.6)
[2017-03-21] MEDS ORDERED: VITAMIN B / W-C 1 TAB PO SCH (09:00)
[2017-03-21] MEDS ORDERED: BACLOFEN 10MG TABLET PO SCH (09:00)
[2017-03-21] MEDS: SENNOSIDES 8.6MG TABLET PO SCH (09:00)
[2017-03-21] MEDS ORDERED: ASCORBIC ACID 250 MG TABLET PO SCH (09:00)
[2017-03-21] MEDS ORDERED: BACLOFEN 10MG TABLET PO PRN (09:00)
[2017-03-21] MEDS ORDERED: FOLIC ACID 1MG TABLET PO SCH (09:00)
[2017-03-21] MEDS: HEPARIN 5000 UNITS/ML VIAL SUBCUT SCH ×2 (09:00→21:53)
[2017-03-21] MEDS ORDERED: MIDODRINE HCL 5MG TABLET PO SCH (09:25)
[2017-03-21] MEDS: ASPIRIN 81MG EC TABLET PO SCH (10:07)
[2017-03-21] MEDS: CLOPIDOGREL 75MG TABLET PO SCH (10:08)
[2017-03-21] MEDS: SEVELAMER CARBONATE 800 MG TABLET PO SCH ×3 (10:12→18:09)
[2017-03-21] MEDS: LEVOTHYROXINE SODIUM 75MCG TABLET PO SCH (10:27)
[2017-03-21] MEDS: FOLIC ACID/VITAMIN B COMP W-C TABLET PO SCH (10:27)
[2017-03-21] MEDS ORDERED: ALBUTEROL (0.083%) 2.5MG/3ML NEB HHN SCH (12:00)
[2017-03-21] MEDS: BUDESONIDE 0.5MG/2ML NEB HHN SCH (13:16)
[2017-03-21] MEDS: IPRATROPIUM/ALBUTEROL 0.5-3(2.5)MG/3ML NEB HHN SCH (13:18)
[2017-03-21 16:50] LABS: CREATINE KINASE 47 IU/L (39-308); CREATINE KINASE MB FRACTION 1.1 ng/mL (0.5-3.6); TROPONIN I < 0.02 ng/mL (0.00-0.04)
[2017-03-21] MEDS: ATORVASTATIN CALCIUM 40MG TABLET PO SCH (21:50)
[2017-03-22] VITALS (11 sets, daily range): BP systolic 98–160; BP diastolic 60–75
[2017-03-22] MEDS ORDERED: VANCOMYCIN 1 G PREMIX 200 ML IV SCH (01:00)
[2017-03-22] MEDS: PIPERACILLIN/TAZ 2.25G PREMIX 50 ML IV SCH ×3 (03:20→18:19)
[2017-03-22] MEDS: IPRATROPIUM/ALBUTEROL 0.5-3(2.5)MG/3ML NEB HHN SCH ×4 (03:27→21:35)
[2017-03-22 07:03] LABS: BASOPHILS % 0.5 % (0.0-2.0); EOSINOPHILS % 1.4 % (0.0-5.0); HEMATOCRIT. 33.6 % (42.0-52.0); HEMOGLOBIN. 11.1 g/dL (14.0-18.0); LYMPHOCYTES % 10.7 % (20.0-50.0); MEAN CORPUSCULAR HEMOGLOBIN 29.4 pg (28.0-32.0); MEAN CORPUSCULAR VOLUME 89.3 fL (80.0-94.0); MEAN PLATELET VOLUME 7.1 fl (7.4-10.4); MONOCYTES % 9.9 % (2.0-8.0); NEUTROPHILS % 77.5 % (40.0-76.0); PLATELET 207 x1000/uL (130-400); RED BLOOD CELL COUNT 3.76 mill/uL (4.7-6.1); RED CELL DISTRIBUTION WIDTH 18.2 % (11.6-14.6)
[2017-03-22 08:16] LABS: PHOSPHORUS 5.6 mg/dL (2.5-4.9)
[2017-03-22] MEDS: CLOPIDOGREL 75MG TABLET PO SCH (08:25)
[2017-03-22] MEDS: LEVOTHYROXINE SODIUM 75MCG TABLET PO SCH (08:25)
[2017-03-22] MEDS: FOLIC ACID/VITAMIN B COMP W-C TABLET PO SCH (08:25)
[2017-03-22] MEDS: SEVELAMER CARBONATE 800 MG TABLET PO SCH ×3 (08:25→18:19)
[2017-03-22] MEDS: SENNOSIDES 8.6MG TABLET PO SCH (08:25)
[2017-03-22] MEDS: ASPIRIN 81MG EC TABLET PO SCH (08:25)
[2017-03-22] MEDS: HEPARIN 5000 UNITS/ML VIAL SUBCUT SCH ×2 (08:26→21:55)
[2017-03-22] MEDS ORDERED: MORPHINE SULFATE 4 MG/ML CPJ (NOT FOR IM USE) IV SCH (09:15)
[2017-03-22] MEDS: MORPHINE SULFATE 4 MG/ML CPJ (NOT FOR IM USE) IV PRN ×2 (13:17→21:54)
[2017-03-22] MEDS: BUDESONIDE 0.5MG/2ML NEB HHN SCH (14:27)
[2017-03-22] MEDS: ATORVASTATIN CALCIUM 40MG TABLET PO SCH (21:00)
== END 2017-03-22 22:15 | disposition short-term general hospital (02) | DRG 871 ==
LOC: ER 20:41 → 5EST 23:58 → EDBEDREQ 03-21 00:02 → EDBEDREQTM 03-21 00:02 → ENRESERV 03-21 00:11
PROVIDERS: ADMIT Internal Medicine; ATTEND Internal Medicine
DX: A41.9 Sepsis, unspecified organism (principal); J96.01 Acute respiratory failure with hypoxia; G93.40 Encephalopathy, unspecified; I50.43 Acute on chronic combined systolic (congestive) and diastolic (congestive) heart failure; E43 Unspecified severe protein-calorie malnutrition; L89.159 Pressure ulcer of sacral region, unspecified stage; J18.9 Pneumonia, unspecified organism; N18.6 End stage renal disease; G82.20 Paraplegia, unspecified; I13.2 Hypertensive heart and chronic kidney disease with heart failure and with stage 5 chronic kidney disease, or end stage renal disease; E87.1 Hypo-osmolality and hyponatremia; G81.91 Hemiplegia, unspecified affecting right dominant side; I42.9 Cardiomyopathy, unspecified; D50.9 Iron deficiency anemia, unspecified; D63.8 Anemia in other chronic diseases classified elsewhere; E03.9 Hypothyroidism, unspecified; E11.22 Type 2 diabetes mellitus with diabetic chronic kidney disease; E11.51 Type 2 diabetes mellitus with diabetic peripheral angiopathy without gangrene; E78.5 Hyperlipidemia, unspecified; E83.39 Other disorders of phosphorus metabolism; E87.5 Hyperkalemia; E11.42 Type 2 diabetes mellitus with diabetic polyneuropathy; I25.10 Atherosclerotic heart disease of native coronary artery without angina pectoris; I27.2 Other secondary pulmonary hypertension; I95.89 Other hypotension; Z74.01 Bed confinement status; Z79.82 Long term (current) use of aspirin; Z79.891 Long term (current) use of opiate analgesic; Z82.49 Family history of ischemic heart disease and other diseases of the circulatory system; Z89.412 Acquired absence of left great toe; Z95.1 Presence of aortocoronary bypass graft; Z95.5 Presence of coronary angioplasty implant and graft; Z99.2 Dependence on renal dialysis; Z68.31 Body mass index [BMI] 31.0-31.9, adult
CPT/HCPCS: 36415; 36600; 70450; 70551; 71010; 80048; 80053; 80061; 80202; 82375; 82550; 82553; 82805; 83605; 83690; 83735; 84100; 84443; 84484; 85025; 85610; 85730; 86850; 86900; 87040; 93005; 93306; 93970; 93971; 94640; 94664; 96361; 96374; 97162; 99291; G0482; J1644; J1956; J2270; J2543; J3370; J7030; J7620; J7626

== ENCOUNTER 2017-04-02 13:28 | Inpatient (IN) | payer OTHER, MEDICARE, MEDICAID ==
[2017-04-02] VITALS (27 sets, daily range): BP systolic 67–142; BP diastolic 26–101
[~2017-04-02] VITALS: Ht 177.8 cm; Wt 87.7 kg
[2017-04-02] MEDS ORDERED: SODIUM CHLORIDE 0.9% 1,000 ML IV ONE (13:42)
[2017-04-02] MEDS ORDERED: VANCOMYCIN 1 G PREMIX 200 ML IV ONE (13:45)
[2017-04-02 14:11] LABS: BG BASE EXCESS 1.5 mmol/L (-2.0-2.0); BG CARBOXYHEMOGLOBIN 0.4 % (0.5-1.5); BG DEOXYHEMOGLOBIN 3.4 % (0.0-5.0); BG FRACTION INSPIRED OXYGEN 32; BG METHEMOGLOBIN 0.3 % (0.0-1.5); BG OXYGEN SATURATION 96.6 % (92.0-98.5); BG OXYHEMOGLOBIN 95.9 % (94.0-97.0); BG PCO2 46.4 mmHg (35.0-45.0); BG PH 7.382 (7.350-7.450); BG PO2 101.8 mmHg (75.0-100.0); BG SAMPLE SITE RIGHT RADIAL; BG VENT MODE NASAL CANNULA
[2017-04-02 14:20] LABS: BASOPHILS % 0.6 % (0.0-2.0); EOSINOPHILS % 0.9 % (0.0-5.0); HEMATOCRIT. 28.8 % (42.0-52.0); HEMOGLOBIN. 9.3 g/dL (14.0-18.0); LYMPHOCYTES % 13.5 % (20.0-50.0); MEAN CORPUSCULAR HEMOGLOBIN 28.6 pg (28.0-32.0); MEAN CORPUSCULAR VOLUME 88.6 fL (80.0-94.0); MEAN PLATELET VOLUME 6.9 fl (7.4-10.4); MONOCYTES % 12.5 % (2.0-8.0); NEUTROPHILS % 72.5 % (40.0-76.0); PLATELET 396 x1000/uL (130-400); RED BLOOD CELL COUNT 3.25 mill/uL (4.7-6.1); RED CELL DISTRIBUTION WIDTH 17.3 % (11.6-14.6)
[2017-04-02 14:30] LABS: INR 2.6; PARTIAL THROMBOPLASTIN TIME 55.8 sec (23.4-31.0); PROTHROMBIN TIME 27.4 sec (9.4-11.6)
[2017-04-02 14:42] LABS: CARBON DIOXIDE 31 mEq/L (21-32); CHLORIDE 98 mEq/L (98-107); PHOSPHORUS 4.7 mg/dL (2.5-4.9)
[2017-04-02 14:43] LABS: TROPONIN I 0.86 ng/mL (0.00-0.04)
[2017-04-02 14:44] LABS: CLARITY URINE CLOUDY (CLEAR); COLOR URINE YELLOW (YELLOW); GLUCOSE URINE TRACE (NEGATIVE); KETONES URINE NEGATIVE (NEGATIVE); LEUKOCYTE ESTERASE URINE TRACE (NEGATIVE); NITRITE URINE NEGATIVE (NEGATIVE); OCCULT BLOOD URINE TRACE (NEGATIVE); PH URINE 8.5 (4.5-8.0); PROTEIN URINE 2+ (NEGATIVE); SPECIFIC GRAVITY URINE 1.013 (1.005-1.030); UROBILINOGEN URINE 0.2 E.U./dL (0.2-1.0)
[2017-04-02] MEDS ORDERED: MIDODRINE HCL 5MG TABLET PO ONE (14:45)
[2017-04-02] MEDS ORDERED: PIPERACILLIN/TAZ 3.375G PREMIX 50 ML IV ONE (15:15)
[2017-04-02] MEDS ORDERED: ENOXAPARIN 40MG/0.4ML SYR SUBCUT SCH (16:00)
[2017-04-02] MEDS ORDERED: ONDANSETRON HCL 4MG/2ML VIAL IV PRN (16:00)
[2017-04-02] MEDS ORDERED: ACETAMINOPHEN 650MG SUPP PR PRN (16:00)
[2017-04-02] MEDS ORDERED: CLONIDINE 0.1MG TABLET PO PRN (16:00)
[2017-04-02] MEDS ORDERED: LACT1CAP73 PO (19:04)
[2017-04-02] MEDS ORDERED: GABA100C PO (19:04)
[2017-04-02] MEDS ORDERED: LIP40 PO (19:04)
[2017-04-02] MEDS ORDERED: CINA30 PO (19:04)
[2017-04-02] MEDS ORDERED: ALBU2.5V13 IH (19:04)
[2017-04-02] MEDS ORDERED: CEFP200T14 PO (19:04)
[2017-04-02] MEDS ORDERED: BISO5TAB13 PO (19:04)
[2017-04-02] MEDS ORDERED: CALC667T2 PO (19:04)
[2017-04-02] MEDS ORDERED: NOREPINEPHRINE 4 MG in DEXT 5% WATER 246 ML IV PRN (19:28)
[2017-04-02] MEDS ORDERED: DEXTROSE 50% WATER 50ML SYRINGE IV PRN (19:45)
[2017-04-02] MEDS: IPRATROPIUM/ALBUTEROL 0.5-3(2.5)MG/3ML NEB INH PRN (20:29)
[2017-04-02 23:45] LABS: CREATINE KINASE MB FRACTION 3.9 ng/mL (0.5-3.6)
[2017-04-03] VITALS (92 sets, daily range): BP systolic 83–125; BP diastolic 41–92
[2017-04-03] MEDS: BLOOD SUGAR DIAGNOSTIC STRIP TEST SCH ×5 (00:04→23:12)
[2017-04-03 00:14] LABS: TROPONIN I 1.3 ng/mL (0.00-0.04)
[2017-04-03] MEDS: MORPHINE SULFATE 4 MG/ML CPJ (NOT FOR IM USE) IV PRN ×5 (02:29→21:16)
[2017-04-03] MEDS: NOREPINEPHRINE 8 MG in DEXT 5% WATER 242 ML IV PRN (02:43)
[2017-04-03 05:42] LABS: BASOPHILS % 0.9 % (0.0-2.0); EOSINOPHILS % 4.1 % (0.0-5.0); HEMOGLOBIN. 9.5 g/dL (14.0-18.0); LYMPHOCYTES % 17.2 % (20.0-50.0); MEAN CORPUSCULAR HEMOGLOBIN 29.1 pg (28.0-32.0); MEAN CORPUSCULAR VOLUME 88.9 fL (80.0-94.0); MEAN PLATELET VOLUME 7.1 fl (7.4-10.4); MONOCYTES % 12.6 % (2.0-8.0); NEUTROPHILS % 65.2 % (40.0-76.0); PLATELET 461 x1000/uL (130-400); RED BLOOD CELL COUNT 3.26 mill/uL (4.7-6.1); RED CELL DISTRIBUTION WIDTH 17.2 % (11.6-14.6)
[2017-04-03] MEDS: INSULIN LISPRO 100 UNITS/ML SUBCUT SCH ×5 (05:50→23:12)
[2017-04-03 06:11] LABS: CARBON DIOXIDE 26 mEq/L (21-32); CHLORIDE 98 mEq/L (98-107); CREATINE KINASE MB FRACTION 3.2 ng/mL (0.5-3.6); PHOSPHORUS 4.6 mg/dL (2.5-4.9)
[2017-04-03] MEDS: IPRATROPIUM/ALBUTEROL 0.5-3(2.5)MG/3ML NEB INH PRN (08:47)
[2017-04-03 09:30] LABS: *AMPHETAMINES SCREEN URINE NEGATIVE (NEGATIVE); *BARBITURATES SCREEN URINE NEGATIVE (NEGATIVE); *BENZODIAZEPINES SCREEN URINE NEGATIVE (NEGATIVE); *COCAINE SCREEN URINE NEGATIVE (NEGATIVE); CANNABINOID URINE SCREEN NEGATIVE (NEGATIVE); METHADONE URINE SCREEN NEGATIVE (NEGATIVE); OPIATES URINE SCREEN PRESUMTIVE POSITIVE (NEGATIVE); PHENCYCLIDINE URINE SCREEN NEGATIVE (NEGATIVE)
[2017-04-03] MEDS ORDERED: LIDOCAINE HCL 1% 20ML VIAL (Pyxis) INJ ONE (11:33)
[2017-04-03] MEDS ORDERED: SODIUM BICARBONATE 4% (2.4MEQ) 5ML VIAL IV ONE (11:34)
[2017-04-03] MEDS: ACETYLCYSTEINE 100MG/ML 10% VIAL 4ML INH SCH ×4 (12:32→23:57)
[2017-04-03] MEDS: IPRATROPIUM/ALBUTEROL 0.5-3(2.5)MG/3ML NEB HHN SCH ×4 (12:33→23:56)
[2017-04-03] MEDS: PANTOPRAZOLE SODIUM 40 MG/VIAL IV SCH (13:04)
[2017-04-03] MEDS: PIPERACILLIN/TAZ 2.25G PREMIX 50 ML IV SCH ×2 (13:12→21:16)
[2017-04-03] MEDS ORDERED: VANCOMYCIN 1 G PREMIX 200 ML IV NR (14:00)
[2017-04-04] VITALS (98 sets, daily range): BP systolic 72–170; BP diastolic 18–112
[2017-04-04] MEDS: MORPHINE SULFATE 4 MG/ML CPJ (NOT FOR IM USE) IV PRN (01:55)
[2017-04-04] MEDS: IPRATROPIUM/ALBUTEROL 0.5-3(2.5)MG/3ML NEB HHN SCH ×5 (03:53→20:29)
[2017-04-04] MEDS: ACETYLCYSTEINE 100MG/ML 10% VIAL 4ML INH SCH ×5 (03:54→20:29)
[2017-04-04] MEDS: INSULIN LISPRO 100 UNITS/ML SUBCUT SCH ×3 (06:00→18:36)
[2017-04-04] MEDS: PIPERACILLIN/TAZ 2.25G PREMIX 50 ML IV SCH ×3 (06:16→21:48)
[2017-04-04] MEDS: BLOOD SUGAR DIAGNOSTIC STRIP TEST SCH ×3 (06:21→18:00)
[2017-04-04 06:55] LABS: TROPONIN I 0.89 ng/mL (0.00-0.04)
[2017-04-04 08:57] LABS: BASOPHILS % 0.9 % (0.0-2.0); EOSINOPHILS % 5.8 % (0.0-5.0); HEMOGLOBIN. 9.2 g/dL (14.0-18.0); LYMPHOCYTES % 13.9 % (20.0-50.0); MEAN CORPUSCULAR HEMOGLOBIN 28.7 pg (28.0-32.0); MEAN CORPUSCULAR VOLUME 87.7 fL (80.0-94.0); MONOCYTES % 12.6 % (2.0-8.0); NEUTROPHILS % 66.8 % (40.0-76.0); PLATELET 358 x1000/uL (130-400); RED CELL DISTRIBUTION WIDTH 17.4 % (11.6-14.6)
[2017-04-04] MEDS: PANTOPRAZOLE SODIUM 40 MG/VIAL IV SCH (09:08)
[2017-04-04] MEDS ORDERED: SODIUM CHLORIDE 0.9% 500 ML IV NR (17:30)
[2017-04-04] MEDS: NOREPINEPHRINE 8 MG in DEXT 5% WATER 242 ML IV PRN (18:15)
[2017-04-05] VITALS (40 sets, daily range): BP systolic 80–121; BP diastolic 28–82
[2017-04-05] MEDS: IPRATROPIUM/ALBUTEROL 0.5-3(2.5)MG/3ML NEB HHN SCH ×5 (00:10→16:00)
[2017-04-05] MEDS: ACETYLCYSTEINE 100MG/ML 10% VIAL 4ML INH SCH ×5 (00:10→16:00)
[2017-04-05] MEDS: INSULIN LISPRO 100 UNITS/ML SUBCUT SCH ×4 (06:00→18:00)
[2017-04-05] MEDS: BLOOD SUGAR DIAGNOSTIC STRIP TEST SCH ×4 (06:00→17:59)
[2017-04-05] MEDS: PIPERACILLIN/TAZ 2.25G PREMIX 50 ML IV SCH (06:09)
[2017-04-05] MEDS ORDERED: ASPIRIN 81MG EC TABLET PO SCH (09:00)
[2017-04-05] MEDS: PANTOPRAZOLE SODIUM 40 MG/VIAL IV SCH (09:04)
[2017-04-05] MEDS ORDERED: MEROPENEM 500 MG in SODIUM CHLORIDE 0.9% 50 ML IV SCH (14:00)
[2017-04-05] MEDS: MORPHINE SULFATE 4 MG/ML CPJ (NOT FOR IM USE) IV PRN (20:55)
== END 2017-04-05 21:02 | disposition short-term general hospital (02) | DRG 871 ==
LOC: ER 13:28 → MICUSO 15:16 → EDBEDREQ 15:27 → ENRESERV 15:34 → SUPCPDRO 15:53
PROVIDERS: ADMIT Internal Medicine Nephrology; ATTEND Internal Medicine Nephrology
PROC: 02HV33Z Insertion of Infusion Device into Superior Vena Cava, Percutaneous Approach (ICD-10-PCS; principal; 2017-04-03)
PROC: B548ZZA Ultrasonography of Superior Vena Cava, Guidance (ICD-10-PCS; 2017-04-03)
DX: A41.9 Sepsis, unspecified organism (principal); J96.00 Acute respiratory failure, unspecified whether with hypoxia or hypercapnia; R65.21 Severe sepsis with septic shock; E43 Unspecified severe protein-calorie malnutrition; I50.43 Acute on chronic combined systolic (congestive) and diastolic (congestive) heart failure; G93.40 Encephalopathy, unspecified; L89.154 Pressure ulcer of sacral region, stage 4; D68.9 Coagulation defect, unspecified; N18.6 End stage renal disease; I13.2 Hypertensive heart and chronic kidney disease with heart failure and with stage 5 chronic kidney disease, or end stage renal disease; I42.9 Cardiomyopathy, unspecified; G82.20 Paraplegia, unspecified; E11.22 Type 2 diabetes mellitus with diabetic chronic kidney disease; Z99.2 Dependence on renal dialysis; D64.9 Anemia, unspecified; E03.9 Hypothyroidism, unspecified; E11.51 Type 2 diabetes mellitus with diabetic peripheral angiopathy without gangrene; E78.5 Hyperlipidemia, unspecified; E87.5 Hyperkalemia; G47.33 Obstructive sleep apnea (adult) (pediatric); I25.10 Atherosclerotic heart disease of native coronary artery without angina pectoris; I25.2 Old myocardial infarction; I35.8 Other nonrheumatic aortic valve disorders; I44.7 Left bundle-branch block, unspecified; I45.81 Long QT syndrome; Z82.49 Family history of ischemic heart disease and other diseases of the circulatory system; Z86.73 Personal history of transient ischemic attack (TIA), and cerebral infarction without residual deficits; Z89.429 Acquired absence of other toe(s), unspecified side; Z95.1 Presence of aortocoronary bypass graft; Z95.5 Presence of coronary angioplasty implant and graft; Z79.899 Other long term (current) drug therapy; I95.9 Hypotension, unspecified; B96.20 Unspecified Escherichia coli [E. coli] as the cause of diseases classified elsewhere; Z16.12 Extended spectrum beta lactamase (ESBL) resistance; Z68.27 Body mass index [BMI] 27.0-27.9, adult
CPT/HCPCS: 36415; 36569; 36600; 70450; 71010; 73562; 76937; 80048; 80053; 80202; 80305; 81001; 82375; 82553; 82805; 82962; 83605; 83690; 83735; 83880; 83970; 84100; 84484; 84550; 85025; 85610; 85730; 86850; 86900; 87040; 87070; 87086; 92610; 93005; 93306; 93970; 93971; 94640; 96365; 99291; A6261; C1725; C9113; J1815; J2185; J2270; J2405; J2543; J3370; J3490; J7030; J7040; J7050; J7060; J7608; J7620; A4315

== ENCOUNTER 2017-04-18 21:49 | Inpatient (IN) | payer OTHER, MEDICARE, MEDICAID ==
[~2017-04-18] VITALS: Ht 177.8 cm; Wt 90.7 kg
[~2017-04-18 21:49] MED LIST changes: +ALBU2.5V13 IH; +CALC667T2 PO; +CEFP200T14 PO; +CINA30 PO; +GABA100C PO; +LACT1CAP73 PO; +LIP40 PO
[2017-04-18] MEDS ORDERED: MORPHINE SULFATE 4 MG/ML CPJ (NOT FOR IM USE) IV STA (22:55)
[2017-04-18] MEDS ORDERED: ONDANSETRON HCL 4MG/2ML VIAL IV STA (22:55)
[2017-04-18] MEDS ORDERED: ASPIRIN 81MG TABLET PO ONE (23:00)
[2017-04-18] MEDS ORDERED: MORPHINE SULFATE 2 MG/ML CPJ (NOT FOR IM USE) IV SCH (23:09)
[2017-04-18 23:47] LABS: EOSINOPHILS % 6.1 % (0.0-5.0); HEMATOCRIT. 25.9 % (42.0-52.0); HEMOGLOBIN. 8.6 g/dL (14.0-18.0); LYMPHOCYTES % 19.2 % (20.0-50.0); MEAN CORPUSCULAR HEMOGLOBIN 29.4 pg (28.0-32.0); MONOCYTES % 12.3 % (2.0-8.0); NEUTROPHILS % 61.4 % (40.0-76.0); PLATELET 176 x1000/uL (130-400); RED BLOOD CELL COUNT 2.94 mill/uL (4.7-6.1); RED CELL DISTRIBUTION WIDTH 17.3 % (11.6-14.6)
[2017-04-18 23:58] LABS: INR 1.2; PROTHROMBIN TIME 12.7 sec (9.4-11.6)
[2017-04-19 00:12] LABS: CARBON DIOXIDE 31 mEq/L (21-32); CHLORIDE 96 mEq/L (98-107); ETHANOL BLOOD < 10 mg/dL
[2017-04-19 00:13] LABS: TROPONIN I 0.03 ng/mL (0.00-0.04)
[2017-04-19 09:00] VITALS: BP 96/76
[2017-04-19 09:32] VITALS: BP 96/61
[2017-04-19] MEDS ORDERED: IPRATROPIUM/ALBUTEROL 0.5-3(2.5)MG/3ML NEB INH PRN (10:00)
[2017-04-19] MEDS ORDERED: HYDROCODONE/APAP 7.5/325MG 1 TAB TABLET PO PRN (10:00)
[2017-04-19] MEDS ORDERED: MORPHINE SULFATE 2 MG/ML CPJ (NOT FOR IM USE) IV PRN (10:00)
[2017-04-19] MEDS ORDERED: ONDANSETRON HCL 4MG/2ML VIAL IV PRN (10:00)
[2017-04-19] MEDS ORDERED: DIPHENHYDRAMINE 50MG/ML VIAL IV PRN (10:00)
[2017-04-19] MEDS ORDERED: CLONIDINE 0.1MG TABLET PO PRN (10:00)
[2017-04-19] MEDS ORDERED: LORAZEPAM 1MG TABLET PO PRN (10:00)
[2017-04-19] MEDS: AMLODIPINE 10MG TABLET PO SCH (10:00)
[2017-04-19] MEDS: ASPIRIN 81MG EC TABLET PO SCH (11:11)
[2017-04-19] MEDS: FOLIC ACID/VITAMIN B COMP W-C TABLET PO SCH (11:11)
[2017-04-19] MEDS: LEVOTHYROXINE SODIUM 75MCG TABLET PO SCH (11:11)
[2017-04-19] MEDS: GABAPENTIN 100MG CAPSULE PO SCH ×3 (11:11→17:51)
[2017-04-19] MEDS: SENNOSIDES 8.6MG TABLET PO SCH (11:12)
[2017-04-19] MEDS: CLOPIDOGREL 75MG TABLET PO SCH (11:12)
[2017-04-19] MEDS: SEVELAMER CARBONATE 800 MG TABLET PO SCH ×2 (11:12→17:51)
[2017-04-19] MEDS: BACLOFEN 10MG TABLET PO SCH ×3 (11:12→17:51)
[2017-04-19] MEDS: BLOOD SUGAR DIAGNOSTIC STRIP TEST SCH ×3 (11:35→21:42)
[2017-04-19] MEDS: INSULIN LISPRO 100 UNITS/ML SUBCUT SCH ×3 (11:35→21:00)
[2017-04-19 12:00] VITALS: BP 109/64
[2017-04-19 14:21] LABS: TROPONIN I 0.03 ng/mL (0.00-0.04)
[2017-04-19] MEDS: CINACALCET HCL 30MG TABLET PO SCH (15:51)
[2017-04-19 16:09] VITALS: BP 108/51
[2017-04-19 20:00] VITALS: BP 97/55
[2017-04-19] MEDS: ATORVASTATIN CALCIUM 40MG TABLET PO SCH (21:00)
[2017-04-19 23:31] LABS: TROPONIN I 0.02 ng/mL (0.00-0.04)
[2017-04-20] VITALS (59 sets, daily range): BP systolic 84–171; BP diastolic 20–88
[2017-04-20] MEDS: INSULIN LISPRO 100 UNITS/ML SUBCUT SCH ×4 (06:10→21:00)
[2017-04-20] MEDS: BLOOD SUGAR DIAGNOSTIC STRIP TEST SCH ×4 (06:10→21:33)
[2017-04-20] MEDS: LEVOTHYROXINE SODIUM 75MCG TABLET PO SCH (06:11)
[2017-04-20] MEDS: DEXTROSE 50% WATER 50ML SYRINGE IV PRN ×2 (06:11→11:04)
[2017-04-20 06:40] LABS: CHLORIDE 100 mEq/L (98-107)
[2017-04-20 06:53] LABS: CARBON DIOXIDE 28 mEq/L (21-32); HDL CHOLESTEROL 35 mg/dL (40-59); LDL CHOLESTEROL 93 mg/dL (5-100); TROPONIN I < 0.02 ng/mL (0.00-0.04)
[2017-04-20 07:00] LABS: BASOPHILS % 1.1 % (0.0-2.0); EOSINOPHILS % 6.6 % (0.0-5.0); HEMOGLOBIN. 8.6 g/dL (14.0-18.0); LYMPHOCYTES % 26.3 % (20.0-50.0); MEAN CORPUSCULAR HEMOGLOBIN 29.3 pg (28.0-32.0); MEAN CORPUSCULAR VOLUME 88.7 fL (80.0-94.0); MEAN PLATELET VOLUME 7.7 fl (7.4-10.4); MONOCYTES % 8.6 % (2.0-8.0); NEUTROPHILS % 57.4 % (40.0-76.0); PLATELET 179 x1000/uL (130-400); RED BLOOD CELL COUNT 2.93 mill/uL (4.7-6.1); RED CELL DISTRIBUTION WIDTH 16.8 % (11.6-14.6)
[2017-04-20 07:16] LABS: BG BASE EXCESS 2.1 mmol/L (-2.0-2.0); BG CARBOXYHEMOGLOBIN 0.5 % (0.5-1.5); BG HCO3 ACT 27.2 mmol/L (22.0-26.0); BG OXYGEN SATURATION 84.6 % (92.0-98.5); BG OXYHEMOGLOBIN 83.9 % (94.0-97.0); BG PCO2 45.3 mmHg (35.0-45.0); BG PH 7.397 (7.350-7.450); BG PO2 53.6 mmHg (75.0-100.0); BG SAMPLE SITE RIGHT RADIAL; BG TOTAL HEMOGLOBIN 9.2 g/dL (12.0-18.0); BG VENT MODE ROOM AIR
[2017-04-20 07:17] LABS: BG DEOXYHEMOGLOBIN 15.3 % (0.0-5.0); BG METHEMOGLOBIN 0.3 % (0.0-1.5)
[2017-04-20] MEDS: AMLODIPINE 10MG TABLET PO SCH (08:07)
[2017-04-20] MEDS: ASPIRIN 81MG EC TABLET PO SCH (08:49)
[2017-04-20] MEDS: SEVELAMER CARBONATE 800 MG TABLET PO SCH ×3 (08:50→18:56)
[2017-04-20] MEDS: CLOPIDOGREL 75MG TABLET PO SCH (08:50)
[2017-04-20] MEDS: SENNOSIDES 8.6MG TABLET PO SCH (08:50)
[2017-04-20] MEDS: BACLOFEN 10MG TABLET PO SCH ×3 (08:50→16:33)
[2017-04-20] MEDS: GABAPENTIN 100MG CAPSULE PO SCH ×3 (08:50→16:33)
[2017-04-20] MEDS: FOLIC ACID/VITAMIN B COMP W-C TABLET PO SCH (08:51)
[2017-04-20] MEDS ORDERED: SODIUM CHLORIDE 0.9% 500 ML IV SCH ×3 (10:30→10:42)
[2017-04-20] MEDS ORDERED: DEXTROSE 50% WATER 50ML SYRINGE IV ONE (11:07)
[2017-04-20] MEDS ORDERED: PIPERACILLIN/TAZ 3.375G PREMIX 50 ML IV SCH (13:45)
[2017-04-20] MEDS ORDERED: NOREPINEPHRINE 16 MG in DEXT 5% WATER 234 ML IV PRN (13:45)
[2017-04-20] MEDS: DEXT 5%/0.45% NACL 1000ML 1,000 ML IV SCH (14:04)
[2017-04-20] MEDS ORDERED: NA PHOS,M-B/NA PHOS,DI-BA ENEMA 118ML PR PRN (15:00)
[2017-04-20] MEDS ORDERED: BISACODYL 10MG SUPP PR PRN (15:00)
[2017-04-20] MEDS ORDERED: VANCOMYCIN 1,250 MG in DEXT 5% WATER 250 ML IV SCH ×2 (16:00→16:45)
[2017-04-20] MEDS: PIPERACILLIN/TAZ 2.25G PREMIX 50 ML IV SCH ×2 (16:30→21:37)
[2017-04-20] MEDS: LACTULOSE 20G/30ML UDC PO PRN (16:34)
[2017-04-20] MEDS: CINACALCET HCL 30MG TABLET PO SCH ×2 (18:20→21:37)
[2017-04-20] MEDS: IPRATROPIUM/ALBUTEROL 0.5-3(2.5)MG/3ML NEB INH SCH (19:58)
[2017-04-20] MEDS ORDERED: IOHEXOL-350 100 ML BOTTLE ONE (20:50)
[2017-04-20] MEDS: ATORVASTATIN CALCIUM 40MG TABLET PO SCH ×2 (21:00→21:36)
[2017-04-20] MEDS ORDERED: LACTULOSE 20G/30ML UDC PO SCH (22:00)
[2017-04-20 23:04] LABS: BG BASE EXCESS 0.1 mmol/L (-2.0-2.0); BG CARBOXYHEMOGLOBIN 0.4 % (0.5-1.5); BG FRACTION INSPIRED OXYGEN 36; BG HCO3 ACT 24.1 mmol/L (22.0-26.0); BG METHEMOGLOBIN 0.3 % (0.0-1.5); BG OXYHEMOGLOBIN 97.3 % (94.0-97.0); BG PCO2 36.4 mmHg (35.0-45.0); BG PH 7.439 (7.350-7.450); BG SAMPLE SITE RIGHT RADIAL; BG TOTAL HEMOGLOBIN 9.3 g/dL (12.0-18.0); BG VENT MODE NASAL CANNULA
[2017-04-21] VITALS (91 sets, daily range): BP systolic 77–125; BP diastolic 26–76
[2017-04-21] MEDS: IPRATROPIUM/ALBUTEROL 0.5-3(2.5)MG/3ML NEB INH SCH ×4 (00:08→20:25)
[2017-04-21] MEDS: DEXT 5%/0.45% NACL 1000ML 1,000 ML IV SCH (03:05)
[2017-04-21] MEDS: LEVOTHYROXINE SODIUM 75MCG TABLET PO SCH (07:50)
[2017-04-21] MEDS: BLOOD SUGAR DIAGNOSTIC STRIP TEST SCH ×4 (07:50→21:41)
[2017-04-21] MEDS: SEVELAMER CARBONATE 800 MG TABLET PO SCH ×3 (08:20→17:21)
[2017-04-21] MEDS: INSULIN LISPRO 100 UNITS/ML SUBCUT SCH ×4 (08:20→21:00)
[2017-04-21] MEDS: FOLIC ACID/VITAMIN B COMP W-C TABLET PO SCH (09:00)
[2017-04-21] MEDS: ASPIRIN 81MG EC TABLET PO SCH (09:00)
[2017-04-21] MEDS: GABAPENTIN 100MG CAPSULE PO SCH ×3 (09:00→17:18)
[2017-04-21] MEDS: BACLOFEN 10MG TABLET PO SCH ×3 (09:00→17:18)
[2017-04-21] MEDS: SENNOSIDES 8.6MG TABLET PO SCH (09:00)
[2017-04-21] MEDS: CLOPIDOGREL 75MG TABLET PO SCH (09:00)
[2017-04-21 09:47] LABS: BASOPHILS % 0.5 % (0.0-2.0); EOSINOPHILS % 5.2 % (0.0-5.0); HEMATOCRIT. 28.7 % (42.0-52.0); HEMOGLOBIN. 9.3 g/dL (14.0-18.0); LYMPHOCYTES % 9.8 % (20.0-50.0); MEAN CORPUSCULAR HEMOGLOBIN 29.3 pg (28.0-32.0); MONOCYTES % 11.9 % (2.0-8.0); NEUTROPHILS % 72.6 % (40.0-76.0); RED BLOOD CELL COUNT 3.18 mill/uL (4.7-6.1); RED CELL DISTRIBUTION WIDTH 17.7 % (11.6-14.6)
[2017-04-21] MEDS: ENOXAPARIN 80MG/0.8ML SYR SUBCUT SCH (11:46)
[2017-04-21] MEDS: PIPERACILLIN/TAZ 2.25G PREMIX 50 ML IV SCH ×2 (13:03→21:48)
[2017-04-21] MEDS ORDERED: VANCOMYCIN 750 MG PREMIX 150 ML IV NR (14:00)
[2017-04-21] MEDS: MIDODRINE HCL 5MG TABLET PO SCH (17:18)
[2017-04-21] MEDS: CINACALCET HCL 30MG TABLET PO SCH (17:21)
[2017-04-21] MEDS: LACTULOSE 20G/30ML UDC PO PRN (17:23)
[2017-04-21 17:54] LABS: AMMONIA < 10 uMol/L (<32)
[2017-04-21 18:03] LABS: ETHANOL BLOOD < 10 mg/dL; T4 FREE 1.07 ng/dL (0.76-1.46)
[2017-04-21 18:41] LABS: FOLIC ACID (FOLATE) SERUM > 20.00 ng/mL (>5.38); VITAMIN B12 SERUM 1383 pg/mL (211-911)
[2017-04-21 18:59] LABS: MEAN PLATELET VOLUME 8.3 fl (7.4-10.4); PLATELET 173 x1000/uL (130-400)
[2017-04-21] MEDS: ACETYLCYSTEINE 100MG/ML 10% VIAL 4ML INH SCH (20:29)
[2017-04-21] MEDS: ATORVASTATIN CALCIUM 40MG TABLET PO SCH (21:48)
[2017-04-22] VITALS (103 sets, daily range): BP systolic 71–164; BP diastolic 23–94
[2017-04-22] MEDS: IPRATROPIUM/ALBUTEROL 0.5-3(2.5)MG/3ML NEB INH SCH ×6 (00:11→20:08)
[2017-04-22] MEDS: ACETYLCYSTEINE 100MG/ML 10% VIAL 4ML INH SCH ×2 (04:06→12:08)
[2017-04-22 04:50] LABS: BASOPHILS % 0.8 % (0.0-2.0); EOSINOPHILS % 7.4 % (0.0-5.0); HEMATOCRIT. 26.7 % (42.0-52.0); HEMOGLOBIN. 8.7 g/dL (14.0-18.0); LYMPHOCYTES % 11.8 % (20.0-50.0); MEAN CORPUSCULAR HEMOGLOBIN 28.6 pg (28.0-32.0); MEAN CORPUSCULAR VOLUME 87.7 fL (80.0-94.0); MEAN PLATELET VOLUME 7.3 fl (7.4-10.4); MONOCYTES % 10.3 % (2.0-8.0); NEUTROPHILS % 69.7 % (40.0-76.0); PLATELET 156 x1000/uL (130-400); RED BLOOD CELL COUNT 3.04 mill/uL (4.7-6.1)
[2017-04-22] MEDS: PIPERACILLIN/TAZ 2.25G PREMIX 50 ML IV SCH ×3 (05:01→21:10)
[2017-04-22 07:19] LABS: PHOSPHORUS 3.3 mg/dL (2.5-4.9)
[2017-04-22] MEDS: INSULIN LISPRO 100 UNITS/ML SUBCUT SCH ×4 (07:48→21:00)
[2017-04-22] MEDS: BLOOD SUGAR DIAGNOSTIC STRIP TEST SCH ×4 (07:48→21:08)
[2017-04-22] MEDS: DEXT 5%/0.45% NACL 1000ML 1,000 ML IV SCH (08:23)
[2017-04-22] MEDS: GABAPENTIN 100MG CAPSULE PO SCH ×3 (08:24→17:00)
[2017-04-22] MEDS: LEVOTHYROXINE SODIUM 75MCG TABLET PO SCH (08:25)
[2017-04-22] MEDS: CLOPIDOGREL 75MG TABLET PO SCH (08:25)
[2017-04-22] MEDS: SENNOSIDES 8.6MG TABLET PO SCH (08:25)
[2017-04-22] MEDS: MIDODRINE HCL 5MG TABLET PO SCH ×3 (08:25→17:00)
[2017-04-22] MEDS: ASPIRIN 81MG EC TABLET PO SCH (08:26)
[2017-04-22] MEDS: SEVELAMER CARBONATE 800 MG TABLET PO SCH ×3 (08:26→17:36)
[2017-04-22] MEDS: FOLIC ACID/VITAMIN B COMP W-C TABLET PO SCH (08:26)
[2017-04-22] MEDS: BACLOFEN 10MG TABLET PO SCH ×3 (08:26→17:00)
[2017-04-22] MEDS ORDERED: HYDROCODONE/ACETAMINOPHEN 5/325MG TABLET PO PRN (08:45)
[2017-04-22] MEDS: NOREPINEPHRINE 16 MG in DEXT 5% WATER 234 ML IV PRN (11:25)
[2017-04-22] MEDS ORDERED: VANCOMYCIN 1 G PREMIX 200 ML IV SCH (12:00)
[2017-04-22] MEDS ORDERED: HEPARIN 100 UNITS/1 ML VIAL IVF SCH (12:45)
[2017-04-22] MEDS: ENOXAPARIN 80MG/0.8ML SYR SUBCUT SCH (12:46)
[2017-04-22] MEDS ORDERED: MIDODRINE HCL 5MG TABLET PO SCH (17:00)
[2017-04-22] MEDS: CINACALCET HCL 30MG TABLET PO SCH (17:36)
[2017-04-22] MEDS: ATORVASTATIN CALCIUM 40MG TABLET PO SCH (20:44)
[2017-04-23] VITALS (93 sets, daily range): BP systolic 61–162; BP diastolic 38–107
[2017-04-23] MEDS: ACETYLCYSTEINE 100MG/ML 10% VIAL 4ML INH SCH ×3 (00:17→16:27)
[2017-04-23] MEDS: IPRATROPIUM/ALBUTEROL 0.5-3(2.5)MG/3ML NEB INH SCH ×6 (00:17→20:00)
[2017-04-23] MEDS: DEXT 5%/0.45% NACL 1000ML 1,000 ML IV SCH (00:59)
[2017-04-23] MEDS: PIPERACILLIN/TAZ 2.25G PREMIX 50 ML IV SCH ×3 (05:13→21:22)
[2017-04-23 06:20] LABS: HEMATOCRIT 26.4 % (42.0-52.0); HEMOGLOBIN 8.5 g/dL (14.0-18.0); MEAN CORPUSCULAR HEMOGLOBIN 28.7 pg (28.0-32.0); MEAN CORPUSCULAR VOLUME 88.9 fL (80.0-94.0); PLATELET 159 x1000/uL (130-400); RED BLOOD CELL COUNT 2.97 mill/uL (4.7-6.1); RED CELL DISTRIBUTION WIDTH 17.2 % (11.6-14.6)
[2017-04-23 06:30] LABS: AMMONIA 36 uMol/L (<32)
[2017-04-23 06:32] LABS: CARBON DIOXIDE 24 mEq/L (21-32); CHLORIDE 101 mEq/L (98-107)
[2017-04-23] MEDS: BLOOD SUGAR DIAGNOSTIC STRIP TEST SCH ×4 (07:50→21:21)
[2017-04-23] MEDS: INSULIN LISPRO 100 UNITS/ML SUBCUT SCH ×4 (08:20→21:00)
[2017-04-23 08:35] LABS: BG BASE EXCESS 0.7 mmol/L (-2.0-2.0); BG CARBOXYHEMOGLOBIN 0.6 % (0.5-1.5); BG DEOXYHEMOGLOBIN 1.6 % (0.0-5.0); BG HCO3 ACT 24.2 mmol/L (22.0-26.0); BG METHEMOGLOBIN 0.3 % (0.0-1.5); BG OXYGEN SATURATION 98.4 % (92.0-98.5); BG OXYHEMOGLOBIN 97.5 % (94.0-97.0); BG PCO2 34.6 mmHg (35.0-45.0); BG PH 7.463 (7.350-7.450); BG PO2 130.1 mmHg (75.0-100.0); BG SAMPLE SITE RIGHT RADIAL; BG TOTAL HEMOGLOBIN 9.4 g/dL (12.0-18.0); BG VENT MODE NASAL CANNULA
[2017-04-23] MEDS: SEVELAMER CARBONATE 800 MG TABLET PO SCH ×3 (09:47→18:20)
[2017-04-23] MEDS: CLOPIDOGREL 75MG TABLET PO SCH (09:47)
[2017-04-23] MEDS: GABAPENTIN 100MG CAPSULE PO SCH (09:47)
[2017-04-23] MEDS: FOLIC ACID/VITAMIN B COMP W-C TABLET PO SCH (09:47)
[2017-04-23] MEDS: BACLOFEN 10MG TABLET PO SCH ×3 (09:47→18:35)
[2017-04-23] MEDS: SENNOSIDES 8.6MG TABLET PO SCH (09:47)
[2017-04-23] MEDS: MIDODRINE HCL 5MG TABLET PO SCH ×3 (09:48→18:34)
[2017-04-23] MEDS: ASPIRIN 81MG EC TABLET PO SCH (09:48)
[2017-04-23] MEDS: LEVOTHYROXINE SODIUM 75MCG TABLET PO SCH (09:48)
[2017-04-23] MEDS: ENOXAPARIN 80MG/0.8ML SYR SUBCUT SCH (10:06)
[2017-04-23] MEDS: LACTULOSE 20G/30ML UDC PO SCH ×2 (13:42→21:09)
[2017-04-23] MEDS: CINACALCET HCL 30MG TABLET PO SCH (18:20)
[2017-04-23] MEDS: ATORVASTATIN CALCIUM 40MG TABLET PO SCH (21:09)
[2017-04-24] VITALS (89 sets, daily range): BP systolic 44–156; BP diastolic 31–114
[2017-04-24] MEDS: IPRATROPIUM/ALBUTEROL 0.5-3(2.5)MG/3ML NEB INH SCH ×6 (00:19→22:15)
[2017-04-24] MEDS: ACETYLCYSTEINE 100MG/ML 10% VIAL 4ML INH SCH ×2 (00:22→08:33)
[2017-04-24 04:27] LABS: HEMATOCRIT 29.3 % (42.0-52.0); HEMOGLOBIN 9.8 g/dL (14.0-18.0); MEAN CORPUSCULAR HEMOGLOBIN 29.4 pg (28.0-32.0); MEAN CORPUSCULAR VOLUME 87.8 fL (80.0-94.0); PLATELET 207 x1000/uL (130-400); RED BLOOD CELL COUNT 3.34 mill/uL (4.7-6.1); RED CELL DISTRIBUTION WIDTH 16.8 % (11.6-14.6)
[2017-04-24 04:47] LABS: CARBON DIOXIDE 24 mEq/L (21-32); CHLORIDE 98 mEq/L (98-107); TOTAL IRON BINDING CAPACITY 181 ug/dL (250-450)
[2017-04-24] MEDS: PIPERACILLIN/TAZ 2.25G PREMIX 50 ML IV SCH ×3 (05:15→21:09)
[2017-04-24] MEDS: LACTULOSE 20G/30ML UDC PO SCH ×3 (05:15→21:13)
[2017-04-24 06:47] LABS: CORTISOL 17.4 ucg/dL
[2017-04-24] MEDS ORDERED: LEVOTHYROXINE SODIUM 100MCG TABLET PO SCH (07:50)
[2017-04-24] MEDS: INSULIN LISPRO 100 UNITS/ML SUBCUT SCH ×4 (08:20→21:00)
[2017-04-24] MEDS: BLOOD SUGAR DIAGNOSTIC STRIP TEST SCH ×4 (08:23→21:06)
[2017-04-24] MEDS: ASPIRIN 81MG EC TABLET PO SCH (08:33)
[2017-04-24] MEDS: CLOPIDOGREL 75MG TABLET PO SCH (08:33)
[2017-04-24] MEDS: SEVELAMER CARBONATE 800 MG TABLET PO SCH ×3 (08:33→17:37)
[2017-04-24] MEDS: FOLIC ACID/VITAMIN B COMP W-C TABLET PO SCH (08:33)
[2017-04-24] MEDS: SENNOSIDES 8.6MG TABLET PO SCH (08:33)
[2017-04-24] MEDS: BACLOFEN 10MG TABLET PO SCH ×3 (08:34→17:37)
[2017-04-24] MEDS: MIDODRINE HCL 5MG TABLET PO SCH ×3 (08:34→17:37)
[2017-04-24] MEDS ORDERED: PANTOPRAZOLE SODIUM 40 MG/VIAL IV SCH (09:00)
[2017-04-24] MEDS: DEXT 5%/0.45% NACL 1000ML 1,000 ML IV SCH (12:12)
[2017-04-24] MEDS: ENOXAPARIN 80MG/0.8ML SYR SUBCUT SCH (13:16)
[2017-04-24] MEDS: NOREPINEPHRINE 16 MG in DEXT 5% WATER 234 ML IV PRN (15:43)
[2017-04-24] MEDS: CINACALCET HCL 30MG TABLET PO SCH (17:37)
[2017-04-24] MEDS: ATORVASTATIN CALCIUM 40MG TABLET PO SCH (20:51)
[2017-05-04 14:23] LABS: RENIN ACTIVITY PLASMA 0.556 ng/mL/hr (0.167-5.380)
[2017-05-12 07:14] LABS: BARBITURATE SCREEN Negative ug/mL (Cutoff:0.1); BENZODIAZEPINE SCREEN Negative ng/mL (Cutoff:20); OPIATES SCREEN Negative ng/mL (Cutoff:5); PHENCYCLIDINE SCREEN Negative ng/mL (Cutoff:8)
== END 2017-04-25 00:10 | disposition short-term general hospital (02) | DRG 314 ==
LOC: ER 22:06 → 8WST 04-19 04:53 → ENRESERV 04-19 08:35 → CVICU 04-20 13:26
PROVIDERS: ADMIT Internal Medicine; ATTEND Internal Medicine
PROC: 5A1D70Z Performance of Urinary Filtration, Intermittent, Less than 6 Hours Per Day (ICD-10-PCS; principal; 2017-04-19)
PROC: 02HV33Z Insertion of Infusion Device into Superior Vena Cava, Percutaneous Approach (ICD-10-PCS; 2017-04-22)
PROC: B548ZZA Ultrasonography of Superior Vena Cava, Guidance (ICD-10-PCS; 2017-04-22)
DX: T82.868A Thrombosis due to vascular prosthetic devices, implants and grafts, initial encounter (principal); G92 Toxic encephalopathy; J96.01 Acute respiratory failure with hypoxia; I13.2 Hypertensive heart and chronic kidney disease with heart failure and with stage 5 chronic kidney disease, or end stage renal disease; I50.43 Acute on chronic combined systolic (congestive) and diastolic (congestive) heart failure; E11.22 Type 2 diabetes mellitus with diabetic chronic kidney disease; N18.6 End stage renal disease; I27.20 Pulmonary hypertension, unspecified; E11.51 Type 2 diabetes mellitus with diabetic peripheral angiopathy without gangrene; N25.81 Secondary hyperparathyroidism of renal origin; I69.351 Hemiplegia and hemiparesis following cerebral infarction affecting right dominant side; Z95.1 Presence of aortocoronary bypass graft; I25.10 Atherosclerotic heart disease of native coronary artery without angina pectoris; Z99.2 Dependence on renal dialysis; D63.8 Anemia in other chronic diseases classified elsewhere; E03.9 Hypothyroidism, unspecified; E78.00 Pure hypercholesterolemia, unspecified; E78.5 Hyperlipidemia, unspecified; F17.210 Nicotine dependence, cigarettes, uncomplicated; I25.5 Ischemic cardiomyopathy; I27.21 Secondary pulmonary arterial hypertension; I44.7 Left bundle-branch block, unspecified; I45.81 Long QT syndrome; Z74.01 Bed confinement status; Z79.4 Long term (current) use of insulin; Z79.82 Long term (current) use of aspirin; Z82.49 Family history of ischemic heart disease and other diseases of the circulatory system; Z89.429 Acquired absence of other toe(s), unspecified side; Z88.8 Allergy status to other drugs, medicaments and biological substances; Z91.14 Patient's other noncompliance with medication regimen; Z91.19 Patient's noncompliance with other medical treatment and regimen; Z95.5 Presence of coronary angioplasty implant and graft; Z79.899 Other long term (current) drug therapy; E11.65 Type 2 diabetes mellitus with hyperglycemia; Z60.2 Problems related to living alone; I95.0 Idiopathic hypotension; Y83.8 Other surgical procedures as the cause of abnormal reaction of the patient, or of later complication, without mention of misadventure at the time of the procedure; Y92.89 Other specified places as the place of occurrence of the external cause
CPT/HCPCS: 36415; 36569; 36600; 70450; 70551; 71010; 71275; 76937; 80048; 80053; 80061; 80202; 80307; 82024; 82088; 82140; 82375; 82533; 82550; 82607; 82728; 82746; 82805; 82962; 83036; 83540; 83550; 83690; 83735; 84100; 84244; 84439; 84443; 84481; 84484; 85025; 85027; 85610; 87040; 87070; 87205; 92523; 92610; 93005; 93970; 93971; 94640; 94660; 96374; 96375; 99285; A6261; C1725; C9113; G0482; J1650; J1815; J2270; J2405; J2543; J3370; J3490; J7030; J7042; J7050; J7060; J7608; J7620; Q9967

== ENCOUNTER 2017-05-08 02:05 | Inpatient (IN) | payer OTHER, MEDICARE, MEDICAID ==
[2017-05-08] VITALS (52 sets, daily range): BP systolic 68–147; BP diastolic 40–100
[~2017-05-08] VITALS: Ht 167.6 cm; Wt 88.6 kg
[2017-05-08] MEDS ORDERED: PIPERACILLIN/TAZ 3.375G PREMIX 50 ML IV ONE (03:00)
[2017-05-08] MEDS ORDERED: VANCOMYCIN 1 G PREMIX 200 ML IV ONE (03:00)
[2017-05-08 03:14] LABS: BASOPHILS % 0.9 % (0.0-2.0); EOSINOPHILS % 3.4 % (0.0-5.0); HEMOGLOBIN. 7.8 g/dL (14.0-18.0); LYMPHOCYTES % 27.7 % (20.0-50.0); MEAN CORPUSCULAR HEMOGLOBIN 29.7 pg (28.0-32.0); MEAN CORPUSCULAR VOLUME 91.9 fL (80.0-94.0); MEAN PLATELET VOLUME 7.2 fl (7.4-10.4); MONOCYTES % 6.4 % (2.0-8.0); NEUTROPHILS % 61.6 % (40.0-76.0); PLATELET 168 x1000/uL (130-400); RED BLOOD CELL COUNT 2.62 mill/uL (4.7-6.1); RED CELL DISTRIBUTION WIDTH 19.2 % (11.6-14.6)
[2017-05-08 03:23] LABS: PROTHROMBIN TIME 21.4 sec (9.4-11.6)
[2017-05-08 03:38] LABS: CARBON DIOXIDE 31 mEq/L (21-32); CHLORIDE 100 mEq/L (98-107)
[2017-05-08] MEDS ORDERED: ACETAMINOPHEN 325MG TABLET PO PRN (06:15)
[2017-05-08 10:59] LABS: BG BASE EXCESS 5.1 mmol/L (-2.0-2.0); BG CARBOXYHEMOGLOBIN 0.6 % (0.5-1.5); BG DEOXYHEMOGLOBIN 0.6 % (0.0-5.0); BG FRACTION INSPIRED OXYGEN 100; BG HCO3 ACT 28.9 mmol/L (22.0-26.0); BG METHEMOGLOBIN 0.2 % (0.0-1.5); BG OXYGEN SATURATION 99.4 % (92.0-98.5); BG OXYHEMOGLOBIN 98.6 % (94.0-97.0); BG PCO2 39.2 mmHg (35.0-45.0); BG PH 7.485 (7.350-7.450); BG PO2 288.5 mmHg (75.0-100.0); BG SAMPLE SITE RIGHT BRACHIAL; BG TOTAL HEMOGLOBIN 8.5 g/dL (12.0-18.0); BG VENT MODE MASK - NRB
[2017-05-08] MEDS ORDERED: NOREPINEPHRINE 16 MG in DEXT 5% WATER 234 ML IV PRN (11:00)
[2017-05-08 12:00] LABS: CREATINE KINASE MB FRACTION 2.7 ng/mL (0.5-3.6)
[2017-05-08 12:08] LABS: TROPONIN I 0.97 ng/mL (0.00-0.04)
[2017-05-08] MEDS: INSULIN LISPRO 100 UNITS/ML SUBCUT SCH ×3 (12:53→20:51)
[2017-05-08] MEDS: BLOOD SUGAR DIAGNOSTIC STRIP TEST SCH ×3 (12:54→20:51)
[2017-05-08] MEDS: DEXTROSE 50% WATER 50ML SYRINGE IV PRN ×2 (12:56→18:09)
[2017-05-08] MEDS ORDERED: IPRATROPIUM/ALBUTEROL 0.5-3(2.5)MG/3ML NEB HHN PRN (13:15)
[2017-05-08] MEDS: ASPIRIN 81MG EC TABLET PO SCH (13:45)
[2017-05-08] MEDS ORDERED: LIDOCAINE HCL 1% 20ML VIAL (Pyxis) INJ ONE (15:36)
[2017-05-08] MEDS ORDERED: SODIUM BICARBONATE 4% (2.4MEQ) 5ML VIAL IV ONE (15:37)
[2017-05-08] MEDS ORDERED: MIDO5TAB PO (17:59)
[2017-05-08] MEDS ORDERED: VANC125C4 PO (17:59)
[2017-05-08] MEDS ORDERED: DOCU-150 PO (17:59)
[2017-05-08] MEDS ORDERED: WARF2TAB55 PO (17:59)
[2017-05-09] VITALS (77 sets, daily range): BP systolic 82–153; BP diastolic 24–95
[2017-05-09] MEDS: IPRATROPIUM/ALBUTEROL 0.5-3(2.5)MG/3ML NEB HHN SCH ×5 (04:42→20:49)
[2017-05-09 05:46] LABS: BASOPHILS % 0.8 % (0.0-2.0); EOSINOPHILS % 3.3 % (0.0-5.0); LYMPHOCYTES % 10.2 % (20.0-50.0); MEAN CORPUSCULAR HEMOGLOBIN 30.1 pg (28.0-32.0); MEAN CORPUSCULAR VOLUME 92.7 fL (80.0-94.0); MEAN PLATELET VOLUME 7.9 fl (7.4-10.4); MONOCYTES % 4.5 % (2.0-8.0); NEUTROPHILS % 81.2 % (40.0-76.0); PLATELET 198 x1000/uL (130-400); RED BLOOD CELL COUNT 2.26 mill/uL (4.7-6.1); RED CELL DISTRIBUTION WIDTH 19.1 % (11.6-14.6)
[2017-05-09 06:02] LABS: HEMOGLOBIN. 6.8 g/dL (14.0-18.0)
[2017-05-09 06:11] LABS: CARBON DIOXIDE 29 mEq/L (21-32); CHLORIDE 103 mEq/L (98-107); CREATINE KINASE 56 IU/L (39-308)
[2017-05-09 06:27] LABS: CREATINE KINASE MB FRACTION 1.7 ng/mL (0.5-3.6); HDL CHOLESTEROL 32 mg/dL (40-59); LDL CHOLESTEROL 72 mg/dL (5-100)
[2017-05-09] MEDS: INSULIN LISPRO 100 UNITS/ML SUBCUT SCH ×4 (06:37→21:00)
[2017-05-09] MEDS: BLOOD SUGAR DIAGNOSTIC STRIP TEST SCH ×4 (06:37→21:00)
[2017-05-09 08:17] LABS: BG BASE EXCESS 2.3 mmol/L (-2.0-2.0); BG CARBOXYHEMOGLOBIN 0.6 % (0.5-1.5); BG DEOXYHEMOGLOBIN 0.6 % (0.0-5.0); BG HCO3 ACT 26.9 mmol/L (22.0-26.0); BG METHEMOGLOBIN 0.3 % (0.0-1.5); BG OXYGEN SATURATION 99.4 % (92.0-98.5); BG OXYHEMOGLOBIN 98.5 % (94.0-97.0); BG PCO2 41.7 mmHg (35.0-45.0); BG PH 7.427 (7.350-7.450); BG PO2 237.6 mmHg (75.0-100.0); BG SAMPLE SITE RIGHT BRACHIAL; BG TOTAL HEMOGLOBIN 9.3 g/dL (12.0-18.0); BG VENT MODE MASK - NRB
[2017-05-09] MEDS: ASPIRIN 81MG EC TABLET PO SCH (09:00)
[2017-05-09] MEDS: DEXTROSE 50% WATER 50ML SYRINGE IV PRN (12:37)
[2017-05-09] MEDS: PANTOPRAZOLE SODIUM 40 MG/VIAL IV SCH (14:39)
[2017-05-09] MEDS: IRON SUCROSE COMPLEX 100 MG/5 ML ML IV SCH (14:40)
[2017-05-09] MEDS ORDERED: PROMETHAZINE/DEXTROMETHORPHAN 6.25-15MG/5ML BOTTLE 120ML PO PRN (15:00)
[2017-05-09] MEDS ORDERED: WARFARIN SODIUM 2MG TABLET PO SCH (18:00)
[2017-05-09] MEDS ORDERED: EPOETIN ALFA 10000UNITS/ML VIAL SUBCUT SCH (21:00)
[2017-05-09] MEDS: GUAIFENESIN 600MG ER TABLET PO SCH (21:19)
[2017-05-10] VITALS (51 sets, daily range): BP systolic 72–135; BP diastolic 30–85
[2017-05-10] MEDS: IPRATROPIUM/ALBUTEROL 0.5-3(2.5)MG/3ML NEB HHN SCH ×5 (00:48→20:09)
[2017-05-10] MEDS: INSULIN LISPRO 100 UNITS/ML SUBCUT SCH ×4 (05:51→21:00)
[2017-05-10] MEDS: BLOOD SUGAR DIAGNOSTIC STRIP TEST SCH ×4 (05:51→21:00)
[2017-05-10 05:55] LABS: BASOPHILS % 0.5 % (0.0-2.0); EOSINOPHILS % 4.9 % (0.0-5.0); HEMATOCRIT. 28.9 % (42.0-52.0); HEMOGLOBIN. 9.6 g/dL (14.0-18.0); LYMPHOCYTES % 13.2 % (20.0-50.0); MEAN CORPUSCULAR HEMOGLOBIN 29.7 pg (28.0-32.0); MEAN CORPUSCULAR VOLUME 89.5 fL (80.0-94.0); MEAN PLATELET VOLUME 7.7 fl (7.4-10.4); MONOCYTES % 6.7 % (2.0-8.0); NEUTROPHILS % 74.7 % (40.0-76.0); PLATELET 129 x1000/uL (130-400); RED BLOOD CELL COUNT 3.23 mill/uL (4.7-6.1); RED CELL DISTRIBUTION WIDTH 18.6 % (11.6-14.6)
[2017-05-10 06:09] LABS: INR 3.3; PROTHROMBIN TIME 34.8 sec (9.4-11.6)
[2017-05-10 06:45] LABS: TROPONIN I 0.53 ng/mL (0.00-0.04)
[2017-05-10] MEDS: IRON SUCROSE COMPLEX 100 MG/5 ML ML IV SCH (09:01)
[2017-05-10] MEDS: GUAIFENESIN 600MG ER TABLET PO SCH ×2 (09:01→21:00)
[2017-05-10] MEDS: PANTOPRAZOLE SODIUM 40 MG/VIAL IV SCH (09:01)
[2017-05-10] MEDS ORDERED: WARFARIN SODIUM 2MG TABLET PO NR (18:00)
== END 2017-05-10 21:40 | disposition short-term general hospital (02) | DRG 189 ==
LOC: ER 02:17 → 3WST 06:07 → EDBEDREQ 06:20 → CANRESERV 06:42 → ENRESERV 06:42 → EDBEDREQSVC 08:20 → EDBEDREQTM 08:20 → ENRESERV 08:24 → MICUSO 14:25
PROVIDERS: ADMIT Internal Medicine; ATTEND Internal Medicine
PROC: 05H533Z Insertion of Infusion Device into Right Subclavian Vein, Percutaneous Approach (ICD-10-PCS; principal; 2017-05-08)
PROC: B546ZZA Ultrasonography of Right Subclavian Vein, Guidance (ICD-10-PCS; 2017-05-08)
PROC: 5A1D70Z Performance of Urinary Filtration, Intermittent, Less than 6 Hours Per Day (ICD-10-PCS; 2017-05-09)
PROC: 30233N1 Transfusion of Nonautologous Red Blood Cells into Peripheral Vein, Percutaneous Approach (ICD-10-PCS; 2017-05-09)
DX: J96.01 Acute respiratory failure with hypoxia (principal); I13.2 Hypertensive heart and chronic kidney disease with heart failure and with stage 5 chronic kidney disease, or end stage renal disease; L89.159 Pressure ulcer of sacral region, unspecified stage; E11.22 Type 2 diabetes mellitus with diabetic chronic kidney disease; I95.9 Hypotension, unspecified; I82.622 Acute embolism and thrombosis of deep veins of left upper extremity; E11.51 Type 2 diabetes mellitus with diabetic peripheral angiopathy without gangrene; E44.1 Mild protein-calorie malnutrition; I27.20 Pulmonary hypertension, unspecified; G82.20 Paraplegia, unspecified; I50.23 Acute on chronic systolic (congestive) heart failure; N18.6 End stage renal disease; I82.C12 Acute embolism and thrombosis of left internal jugular vein; I69.351 Hemiplegia and hemiparesis following cerebral infarction affecting right dominant side; D63.8 Anemia in other chronic diseases classified elsewhere; E87.5 Hyperkalemia; I25.10 Atherosclerotic heart disease of native coronary artery without angina pectoris; E03.9 Hypothyroidism, unspecified; E78.00 Pure hypercholesterolemia, unspecified; F32.9 Major depressive disorder, single episode, unspecified; I25.5 Ischemic cardiomyopathy; I45.4 Nonspecific intraventricular block; Z99.2 Dependence on renal dialysis; Z79.01 Long term (current) use of anticoagulants; Z79.02 Long term (current) use of antithrombotics/antiplatelets; Z79.899 Other long term (current) drug therapy; Z82.49 Family history of ischemic heart disease and other diseases of the circulatory system; Z89.429 Acquired absence of other toe(s), unspecified side; Z95.1 Presence of aortocoronary bypass graft; Z95.5 Presence of coronary angioplasty implant and graft; Z68.31 Body mass index [BMI] 31.0-31.9, adult
CPT/HCPCS: 36415; 36569; 36600; 71010; 76937; 78580; 80048; 80053; 80061; 82270; 82375; 82550; 82553; 82805; 82962; 83540; 83550; 83605; 83735; 83880; 84439; 84443; 84481; 84484; 85025; 85379; 85610; 86850; 86900; 86920; 87040; 93005; 93306; 93970; 93971; 94640; 94664; 96365; 96366; 96368; 99285; A6261; C1725; C9113; J0885; J2543; J3370; J3490; J7030; J7040; J7050; J7060; J7620; P9016